=== PATIENT | male | born 1990 | race Caucasian/White ===

== ENCOUNTER 2016-12-08 13:17 | Inpatient (IN) | payer MEDICAID, OTHER ==
[~2016-12-08] VITALS: Ht 175.3 cm; Wt 64.0 kg
[2016-12-08 13:17] VITALS: BP 121/84; PULSE 83; RESP 14; O2SAT 100
[~2016-12-08 13:17] MED LIST: OLAN5TAB25 PO
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
[2016-12-08 15:49] LABS: BASOPHILS % (AUTO) 0.2 % (0-3); EOSINOPHILS % (AUTO) 0.3 % (0-5); MONOCYTES % (AUTO) 7.7 % (4-12); Mean Corpuscular Hemoglobin 28.1 pg (27.0-35.0); Mean Corpuscular Volume 81.7 fL (81-100); Platelet Count 244 bil/L (150-400)
[2016-12-08 18:32] VITALS: BP 118/72; PULSE 71; RESP 16; O2SAT 99
[2016-12-08 20:54] VITALS: BP 108/71; PULSE 65; RESP 16; O2SAT 98
--- NOTE | 2016-12-08 21:00 | NUR ---
Nurses Admission Note 26 year old involuntary male admitted from our ER due to increasing auditory hallucinations,poor sleep, delusional thought processes as well as occasionally carrying a knife with an underlying agitated edge. Patient denied feelings of self harm, denied feelings to harm others. Patient was cooperative,oriented X 3. He has been on medications in the distant past but is not receptive to them stating they never helped him but gave him a lot of side effects.He has a history of 4 previous psychiatric hospitalizations. Patient did accept Zyprexa Zydis 10mg in the ER before transfer to the unit without difficulty. He has been sober for 2 years,smokes pot on occasion and reports it helps his anxiety and his thoughts. Patient admits to voices talking and "it freaks people out when I'm talking to them."Patient will remain on q 15min. checks for safety and support.
[2016-12-08] MEDS ORDERED: Alum-Mag Hydrox-Simeth 30 mL Suspension PO PRN (21:10)
[2016-12-08] MEDS ORDERED: LORazepam 1 mg Tablet PO PRN (21:10)
[2016-12-08] MEDS ORDERED: Benzocaine-Menthol Lozenge 2/Pkg PO PRN (21:10)
[2016-12-08] MEDS ORDERED: Magnesium Hydroxide 10 mL Oral Concentration PO PRN (21:10)
--- NOTE | 2016-12-09 05:12 | NUR ---
Prenatal Teacher note 7pm to 7am Pt appeared to sleep soundly throughout the night. Pt slept 7 hours. Monitored with q 15 minutes checks for safety, location and accountability
[2016-12-09] MEDS: OLANZapine Zydis ODT 5 mg Tablet PO SCH ×3 (08:15→21:10)
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
--- NOTE | 2016-12-09 14:24 | NUR ---
Nursing Dayshift: S: "Today's better than yesterday." O: Patient has been out of his room for meals eating 100%. Otherwise has been isolative in his room. Med compliant. Approachable. Denies anxiety, depression, harmful thoughts, and hallucinations. A: Flat affect. Isolative. P: CPOC. Monitor mood and behavior.
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
--- NOTE | 2016-12-09 21:09 | NUR ---
Observations 0900 to 2130 Pt affect and mood flat, isolative, anxious, guarded and withdrawn. Pt did not attend community meeting. Pt speech and eye contact was ok. Pt refused to attend both group and unit activities. Pt was un-social with staff and select peers when approached, giving short one/two word responses. Pt attended meals in D.R. and ate 100% of his meals. Pt came out for snacks. Pt maintained behavior throughout the shift. Pt was polite, pleasant and cooperative. Pt was in his room most of the shift, sitting on bed, laying in bed and/or pacing around the room. Pt paced in the hallway for a short time in the early evening. Pt was observed every 15 minutes throughout the shift as ordered.
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
--- NOTE | 2016-12-10 05:58 | NUR ---
nursing, nights, 11-7 s/o- has appeared to sleep after 2200 during q 15 minute assessments. a- Difficulty remaining asleep this shift, and noted to be conversing with internal stimuli. p- monitor behavior/emotional state, quality, times and amount of sleep, use and effect of medication.
[2016-12-10] MEDS: OLANZapine Zydis ODT 5 mg Tablet PO SCH ×2 (08:30→20:20)
--- NOTE | 2016-12-10 14:24 | NUR ---
Observations 0900 to 1500 Pt affect and mood was same as previous days. Pt attended community meeting and set a daily goal. Pt speech and eye contact was ok. Pt refused to attend both group and unit activities. Pt was un-social with staff and select peers when approached, giving short responses. Pt attended meals in D.R. and ate 100% of his meals. Pt took a shower and attended to ADL's. Pt maintained behavior throughout the shift. Pt was polite, pleasant and cooperative. Pt was out of his room a little more today. Pt was observed every 15 minutes throughout the shift as ordered.
[2016-12-10 15:45] VITALS: BP 117/63; PULSE 63; RESP 16
--- NOTE | 2016-12-10 16:22 | PCM.PNPSY ---
Subjective Date of Service Dec 10, 2016 Subjective The patient states that he is "better than yesterday, yesterday I was having a terrible time focusing. A chaotic state and now I feel fine." The patient reported that he was not interested in taking medications while in the hospital or upon discharge. The patient states that he had his father drive him into the hospital as he was having a lot of flashbacks. He reports that he felt unsafe in the home and was having violent thoughts from childhood experiences. Upon discharge he states he would like to get a job. As an example he reported in October he worked at a [employer] and in [place] time at [email or web address]. The patient so far is only taken 1 dose of olanzapine on 12/09/2016. Sleep: "I slept most of yesterday but not much last night" 3.5 hours per staff. Appetite: Reports high appetite but also states had a 10 pound weight loss over 3 weeks due to decreased appetite Suicidal and homicidal ideation: Denies Auditory hallucinations: Reports that "sometimes it is difficult to differentiate from reality." "My attention span fleeing me." Visual hallucinations: Denies Other Psychotic Symptoms: N/A Anxiety: 0/10 Depression: 0/10 Current Medications Current Medications Ketorolac Tromethamine 30 mg ONCE ONCE IM Last administered on 12/08/16 19:50; Admin Dose 30 MG; Start 12/08/16 at 19:00; Stop 12/08/16 at 19:01; Status DC Olanzapine 10 mg BID PO Last administered on 12/09/16 08:15; Admin Dose 10 MG; Start 12/09/16 at 08:30 Olanzapine 10 mg DAILY PO Last administered on 12/08/16 20:45; Admin Dose 10 MG ; Start 12/09/16 at 08:30; Stop 12/09/16 at 08:30; Status DC Mental Status Exam Vital Signs Vital Signs Date Time Temp Pulse Resp B/P Pulse Ox O2 Delivery O2 Flow Rate FiO2 12/10/16 15:45 35.7 63 16 117/63 Appearance: Neat/well groomed Attitude: Pleasant, Guarded Behavior: No unusual behavior Affect: Restricted Mood: Dysthymic Thought Process/Associations: Logical/Sequential Speech Production: Normal Speech Rate: Normal Speech Articulation: Normal Thought Content: Suspicious Danger to Self/Suicidal Ideati: None Danger to Others: None Delusions: Paranoid (Endorses) Hallucinations: Auditory (Denies), Visual (Denies) Consciousness: Alert Orientation: Person, Place, Date, Situation Memory: Grossly Intact Estimate Intellectual Function: Average Attention/Concentration & Cogn: Impaired Insight: None Judgement: Poor Result Diagram: 12/08/16 1535 12/08/16 1535 Mental Health Plan The patient is a 26-year-old male currently living with his mother and father. He has a history of multiple inpatient admissions for schizophrenia at both [facility] and at [facility]. He tends to be medication noncompliant. He states he has been not taking any psychiatric medications for the past two years and over the past three months has had increased psychosis ( responding to internal stimuli, paranoid, increasing agitation). For the past three weeks, he has had poor sleep, and now he is having auditory hallucinations , homicidal ideation (nonspecific target) and buddhism preoccupation. On admission, he was agitated and it was difficult to get an alliance. In the past he has responded to Zyprexa, although he is only taken one dose since admission here. He was detained on a 72-hour involuntary treatment. The severity of his symptoms appear to have abated for the time being. [place] I 1. Schizophrenia. 2. Posttraumatic stress disorder. 3. Depression, unspecified. 4. Marijuana use disorder [place] II Defer. [place] III None. [place] IV Moderate. [place] V Current GAF equal to 30. Medications Olanzapine 10 mg twice daily Lorazepam 1 mg every 4 hours when necessary anxiety or agitation Zolpidem 5-10 mg nightly when necessary insomnia Treatments 1. The patient is admitted to the inpatient unit and will be provided a safe and secure environment. 2. The patient is denying current active suicidality and is not in need of a one-to-one at this time. 3. The patient is encouraged to participate with group and milieu activities. 4. The patient will be seen by the treatment team on a daily basis to assess symptoms, side effects and response to treatment. 5. The patient is encouraged to take medications and depending on his response on the units may require a compelled medication order. Family have expressed concern about the patient returning home in his current condition. 6. Anticipated length of stay is 7-10 days. Nolan Crocker MD Dec 10, 2016 16:22
--- NOTE | 2016-12-10 17:37 | NUR ---
nursing note 7am-7pm S)"thank you ... I don't know who to thank for the food" O) pt remains polite, states mood is "mostly optimistic" denies any depression or anxiety, isolates in room came out for meals, non-compliant with medications "I was told I am not forced to take them...so I will not take them at this time" no complaints or questions, well groomed and dressed in scrubs A)cooperative, polite, refused medication P)encourage participation in treatment and to take medications as ordered
--- NOTE | 2016-12-10 17:57 | NUR ---
Field Laborer./ c.m. S.:"I'm better than yesterday. Today I feel fine. I told them I'm not interested in medications. I calmed down a lot here." O.: met with pt. and MD together. Pt. didn't sleep well last night because he "slept almost all day yesterday". MD asked pt. to stay awake today during the day but pt. was sleeping on and off again during the day. Pt. didn't want to take meds. He said that "meditation and time out" were the best for him. He denied SI/HI, denied AH/VH, denied depression or anxiety, denied paranoid/delusional thoughts. He said that he would be able to go back home after discharge. He didn't see a reason for staying here longer. He signed RAMYA for his father Kody Infante and data analyst report writer talked to pt.'s father. Kody Infante refused to take pt. back home unless he was taking meds. Father wanted to see pt. on 14 [address]. He didn't explain much about it except pt. "needs to take meds." He didn't have any options for pt.'s housing if he wasn't taking meds. "Principal Cloud Architect has to put him (pt.) on 14 MR[address] and tell him to take medications! After that he can come home!" Pt. was in and out from his room mostly for meals. He didn't socialize with peers. A.: pt. is isolative, easily agitated, has poor insight about his mental health condition. He has a flat affect and intense stare. P.: monitor behavior, encourage pt. to take meds; follow care plan.
--- NOTE | 2016-12-10 20:22 | NUR ---
Refused meds S: Pt understands that he has one scheduled med this evening. I: Pt states, "I'm refusing them at this time and they (the doctor) know this." E: Pt does not appear psychotic. He is lying quietly in his bed. Denies pain.
--- NOTE | 2016-12-11 00:31 | NUR ---
Pain P: Pt is awake. C/O a headache. I: Refuses Tylenol E: Will cont to monitor
--- NOTE | 2016-12-11 02:35 | NUR ---
Observations 1900 to 0700 Pt has been in his room for most of the night. Pt came out for awhile to talk to his visitor. Pt went back to his room soon after. pt is having a hard time staying asleep during the night. Pt first appeared asleep at 22:15 and was observed every 15 minutes through the night as directed.
[2016-12-11] MEDS: OLANZapine Zydis ODT 5 mg Tablet PO SCH (08:30)
[2016-12-11 14:26] VITALS: BP 138/79; PULSE 59; RESP 17
--- NOTE | 2016-12-11 15:36 | NUR ---
Mechanical Design Engineer Products./c.m. S.:"I'm tired. I couldn't sleep at all. I'm getting rest that I need right now... I'm not interested in medications." O.: met with pt. and MD together in pt.'s room. He was in bed resting. He spent a lot of time in his room during the day. He complained about checks at night. He denied SI/HI denied AH/VH, denied paranoid/delusional thoughts, denied anxiety. He said that he "was depressed today. I just miss my son and a woman whom I love." He refused to take meds - "I'm not interested in meds." Ichthyologist talked with pt.'s father yesterday about pt.'s progress and housing options at time of discharge. Pt.'s father refused to take pt. back home without medications. He said "he can't come home if he is not taking medications." Ichthyologist told pt. about his father's requirement. Pt. said that he would find different housing - "I have a few more options." A.: pt. is isolative, quiet, has poor insight, easily frustrated. P.: monitor behavior, encourage pt. to take meds, possible court tomorrow; follow care plan.
--- NOTE | 2016-12-11 21:55 | PCM.PNPSY ---
Subjective Date of Service Dec 11, 2016 Subjective The patient reports that he remembers being quite agitated at home and was trying to express his frustrations and anger which resulted in his knife threats. He iterated that he did not plan or want to take medications on discharge. When explained to him that his family was concerned about his behavior and did not feel comfortable having him return home without medications (which have typically stabilized him.) The patient simply reported , "I will have to find somewhere else to live then." He was unaware of where would or could stay. He continues to refuse medications. We discussed decreasing the dose of olanzapine, but the patient declined. The patient has a family visit planned for today. Sleep: 3.75 hours Appetite: "fine - eating all meals." Suicidal and homicidal ideation: denies Auditory hallucinations/Visual hallucinations: denies Other Psychotic Symptoms: isolation, limited insight Anxiety: denies Depression: "earlier today, missing my son and the woman I love." Reports his last communication with his former girlfriend was August 22 via texting. He appeared to have difficulty understanding her statement that she would like to be friends but nothing more than that. Mental Status Exam Vital Signs Vital Signs Date Time Temp Pulse Resp B/P Pulse Ox O2 Delivery O2 Flow Rate FiO2 12/11/16 14:26 35.8 59 17 138/79 Appearance: Neat/well groomed Attitude: Pleasant, Guarded Behavior: No unusual behavior Affect: Restricted Mood: Dysthymic Thought Process/Associations: Logical/Sequential Speech Production: Normal Speech Rate: Normal Speech Articulation: Normal Thought Content: Suspicious Danger to Self/Suicidal Ideati: None Danger to Others: None Delusions: Paranoid (Moderate, isolates to room, avoids staff/peers.) Hallucinations: Auditory (Denies), Visual (Denies) Consciousness: Alert Orientation: Person, Place, Date, Situation Memory: Grossly Intact Estimate Intellectual Function: Average Attention/Concentration & Cogn: Impaired Insight: None Judgement: Poor Result Diagram: 12/08/16 1535 12/08/16 1535 Mental Health Plan The patient is a 26-year-old male currently living with his mother and father. He has a history of multiple inpatient admissions for schizophrenia at both [facility] and at [facility]. He tends to be medication noncompliant. He states he has been not taking any psychiatric medications for the past two years and over the past three months has had increased psychosis ( responding to internal stimuli, paranoid, increasing agitation). For the past three weeks, he has had poor sleep, and now he is having auditory hallucinations , homicidal ideation (nonspecific target) and christianity preoccupation. On admission, he was agitated and difficult to engage. In the past he has responded to Zyprexa, although he has only taken one dose since admission here. He appears improved, but remains suspicious, with cognitive impairment and poor insight and judgment. He was detained on a 72-hour involuntary treatment. The severity of his symptoms appear to have abated for the time being. Nevertheless, he is still exhibiting negative symptoms and may accept a reduce dose of olanzapine after family visit today. Magnolia Magnolia I 1. Schizophrenia. 2. Posttraumatic stress disorder. 3. Depression, unspecified. 4. Marijuana use disorder Magnolia II Defer. Magnolia III None. Magnolia IV Moderate. Magnolia V Current GAF equal to 30. Medications Olanzapine 10 mg twice daily Lorazepam 1 mg every 4 hours when necessary anxiety or agitation Zolpidem 5-10 mg nightly when necessary insomnia Treatments 1. The patient is admitted to the inpatient unit and will be provided a safe and secure environment. 2. The patient is denying current active suicidality and is not in need of a one-to-one at this time. 3. The patient is encouraged to participate with group and milieu activities. 4. The patient will be seen by the treatment team on a daily basis to assess symptoms, side effects and response to treatment. 5. The patient is encouraged to take medications and depending on his response on the units may require a compelled medication order. Family have expressed concern about the patient returning home in his current condition. Olanzapine will be reduced to 5mg nightly to potentially aid in adherence. 6. Anticipated length of stay is 7-10 days. Nolan Crocker MD Dec 11, 2016 21:54
--- NOTE | 2016-12-11 23:53 | NUR ---
Nurses Note Evening Patient has been on the unit,played cards with male peers,was visited by his father which was tense at times. Patient has maintained control but remains guarded and superficial with staff.Will maintain q 15min. checks for safety and support.Patient has court in the am. Addendum: 12/11/16 at 2867 by JOSIAS NGO RN Amended: Links added.
--- NOTE | 2016-12-12 01:26 | NUR ---
Observations 1900 to 0700 Pt's Mother visited again last night. Pt played cards for awhile Pt went back to his room soon after he was done. pt is sleeping better than the previous night. Pt first appeared asleep at 21:30 and was observed every 15 minutes through the night as directed.
--- NOTE | 2016-12-12 05:51 | NUR ---
Sleep 11p-7a Adequate sleep through the night with no noted distress or awakening per protocol checks. Total sleep 7.5+ hours.
[2016-12-12 10:36] VITALS: BP 131/81; PULSE 84; RESP 16
--- NOTE | 2016-12-12 17:07 | PCM.PNPSY ---
Subjective Date of Service Dec 12, 2016 Subjective The patient continues to endorse a belief in Satanic cults in the area but states that he no longer feels threatened by them. He reports that although he was holding onto a knife and it could have been interpreted as threatening, he was not intending to threaten anyone. He reported that at that time he was feeling threatened (and in the [facility] notes it states that the patient had threatened to kill others to defend himself) but denies similar. We discussed the patient's family and there are reports of concern about his recent behavior and request that he be on medication and the patient stated that his family no longer is requesting. In Court he denied ever having heard that he had schizophrenia and that "this is the first time I have ever heard of it." Of note he was diagnosed with schizophrenia during his last stay in 2014. He reports a belief that his symptoms are due to post manic stress disorder although the traumatizing event is unclear. He reports that he plans to treat his schizophrenia with roby chi and martial arts. He has consistently declined medications outside of the original dose of olanzapine. Sleep: 8.5+ hours Appetite: Good Suicidal and homicidal ideation: Denies Auditory hallucinations/Visual hallucinations: Denies Other Psychotic Symptoms: Paranoid delusions as above Anxiety: Moderate Depression: Denies Mental Status Exam Vital Signs Vital Signs Date Time Temp Pulse Resp B/P Pulse Ox O2 Delivery O2 Flow Rate FiO2 12/12/16 10:36 36.7 84 16 131/81 Appearance: Neat/well groomed Attitude: Pleasant, Guarded Behavior: No unusual behavior Affect: Restricted Mood: Dysthymic Thought Process/Associations: Logical/Sequential Speech Production: Normal Speech Rate: Normal Speech Articulation: Normal Thought Content: Suspicious Danger to Self/Suicidal Ideati: None Danger to Others: None Delusions: Paranoid (Moderate, isolates to room, avoids staff/peers. Delusions as above.) Hallucinations: Auditory (Denies), Visual (Denies) Consciousness: Alert Orientation: Person, Place, Date, Situation Memory: Grossly Intact Estimate Intellectual Function: Average Attention/Concentration & Cogn: Impaired Insight: None Judgement: Poor Result Diagram: 12/08/16 1535 12/08/16 1535 Mental Health Plan The patient is a 26-year-old male currently living with his mother and father. He has a history of multiple inpatient admissions for schizophrenia at both [facility] and at [facility]. He tends to be medication noncompliant. He states he has been not taking any psychiatric medications for the past two years and over the past three months has had increased psychosis ( responding to internal stimuli, paranoid, increasing agitation). For the past three weeks, he has had poor sleep, and now he is having auditory hallucinations , homicidal ideation (nonspecific target) and confucianism preoccupation. On admission, he was agitated and difficult to engage. In the past he has responded to Zyprexa, although he has only taken one dose since admission here. He appears improved, but remains suspicious, with cognitive impairment and poor insight and judgment. He was detained on a 72-hour involuntary treatment. The severity of his symptoms appear to have abated for the time being. Nevertheless, he is still describing a number of delusions, demonstrating poor insight into his mental illness and need for treatment, and exhibiting negative symptoms. He, so far, has declined medications. He has been detained on a 14 day order and should he refuse medications a second opinion will need to be obtained. Raleigh Raleigh I 1. Schizophrenia, chronic paranoid type. 2. Posttraumatic stress disorder. 3. Depression, unspecified. 4. Marijuana use disorder Raleigh II Defer. Raleigh III None. [place] IV Moderate. Raleigh V Current GAF equal to 30. Medications Olanzapine 5mg nightly Lorazepam 1 mg every 4 hours when necessary anxiety or agitation Zolpidem 5-10 mg nightly when necessary insomnia Treatments 1. The patient is admitted to the inpatient unit and will be provided a safe and secure environment. 2. The patient is denying current active suicidality and is not in need of a one-to-one at this time. 3. The patient is encouraged to participate with group and milieu activities. 4. The patient will be seen by the treatment team on a daily basis to assess symptoms, side effects and response to treatment. 5. The patient is encouraged to take medications and depending on his response on the units may require a compelled medication order. Family have expressed concern about the patient returning home in his current condition. Olanzapine will be reduced to 5mg nightly to potentially aid in adherence. 6. Will attempt to schedule family meeting in the near future. 6. Anticipated length of stay is 7-10 days. Nolan Crocker MD Dec 12, 2016 17:07
--- NOTE | 2016-12-12 18:55 | NUR ---
Quality Nurse/Counselor: S/O: Patient slept 8.5 hours last night as per staff. He denies S/I and H/I. He denies auditory and visual hallucinations. Depression is 0/10 and anxiety is "moderate"/10. Patient's family has a scheduled family meeting with the psychiatrist at 1:00pm tomorrow. A: Patient is cooperative, pleasant, guarded, restricted affect, dysthymic, no insight, poor judgment. P: Follow care plan, coordinate out-patient providers.
--- NOTE | 2016-12-13 03:40 | NUR ---
Nursing Note [id number] Pt isolating to room. Did not attend suman group or suman snack time. Pt appeared to be in a manic state rapidly scribbling on paper with flat affect. Pt avoided eye contact and has no apparent insight to his condition . When asked about depression, anxiety, and SI,OR pt was unable or unwilling to assess only stating multiple times"I'm great". When asked if he needed anything pt c/t state "I would not want to trouble you with conversation". P Pt c/t refuse all ordered medication and no PRN's requested. Q15 min safety checks done per protocol, no distress noted WCTM sleep, safety, behavior
[2016-12-13 09:15] VITALS: BP 132/80; PULSE 82; RESP 17
--- NOTE | 2016-12-13 17:52 | NUR ---
Observations [id number] Pt was asleep upon start of shift. Pt spent more time in the common areas today, playing the guitar in the piano room and socializing more with peers. Pt also took a shower but did not want a new change of clothing. He attended all meals, eating 100%. He did not attend groups. Pt was observed talking to himself in dining area. He appeared to be writing and talking at the same time. Pt also appears to be observing other patients and analyzing their behavior. Pt was friendly upon interaction and was observed every 15 minutes of shift as directed.
--- NOTE | 2016-12-13 17:54 | NUR ---
Nursing Dayshift: S: "I want to maintain a steady constant, serenity." O: Patient's goal for today. Has been in his room much of the shift through mid afternoon. Noted to be coloring in the dining room later in the afternoon. Good appetite at meals and snacks. Noted to be odoriferous. Encouraged to take a shower and complied. Put on the same clothing and continues to be odoriferous. Declined to change into a clean pair of scrubs. A: Odoriferous. Flat affect. P: CPOC. Monitor mood and behavior. Encourage change of clothing with a possible extra shower.
--- NOTE | 2016-12-13 23:26 | PCM.PNPSY ---
Subjective Date of Service Dec 13, 2016 Subjective An hour long meeting with the patient and his parents was had today. The patient's parents encouraged the patient to take antipsychotic medication. The patient again referred to his belief in cult behavior by the buddhist he attended as well as his belief that he may have been given communal wine and Eucharist which were deliberately tainted so that he would hallucinate. The patient's reluctance to medication appears related to his mother's reluctance to take medication although she stated to him today that she believes that he needs to take medication. Sleep: 8.5 hours Appetite: good Suicidal and homicidal ideation: denies Auditory hallucinations: denies Visual hallucinations: denies Other Psychotic Symptoms: paranoid delusions as above. Anxiety: denies Depression: denies Mental Status Exam Appearance: Neat/well groomed Attitude: Pleasant, Guarded Behavior: No unusual behavior Affect: Restricted Mood: Irritable (mildly), Dysthymic Thought Process/Associations: Logical/Sequential (generally), Circumstantial Speech Production: Normal Speech Rate: Normal Speech Articulation: Normal Thought Content: Suspicious Danger to Self/Suicidal Ideati: None Danger to Others: None Delusions: Paranoid (Moderate, isolates to room, avoids staff/peers. Delusions as above.) Hallucinations: Auditory (Denies), Visual (Denies) Consciousness: Alert Orientation: Person, Place, Date, Situation Memory: Grossly Intact Estimate Intellectual Function: Average Attention/Concentration & Cogn: Impaired Insight: None Judgement: Poor Result Diagram: 12/08/16 1535 12/08/16 1535 Mental Health Plan The patient is a 26-year-old male currently living with his mother and father. He has a history of multiple inpatient admissions for schizophrenia at both [facility] and at [facility]. He tends to be medication noncompliant. He states he has been not taking any psychiatric medications for the past two years and over the past three months has had increased psychosis ( responding to internal stimuli, paranoid, increasing agitation). For the past three weeks, he has had poor sleep, and now he is having auditory hallucinations , homicidal ideation (nonspecific target) and alevism preoccupation. On admission, he was agitated and difficult to engage. In the past he has responded to Zyprexa, although he has only taken one dose since admission here. He appears improved, but remains suspicious, with cognitive impairment and poor insight and judgment. He was detained on a 72-hour involuntary treatment. The severity of his symptoms appear to have abated for the time being. Nevertheless, he is still describing a number of delusions, demonstrating poor insight into his mental illness and need for treatment, and exhibiting negative symptoms. He, so far, has declined medications. He has expressed concern about metabolic syndrome and weight gain and so was given informed consent and product information regarding aripiprazole. He has been detained on a 14 day order and should he refuse medications a second opinion will need to be obtained. Woodbridge Woodbridge I 1. Schizophrenia, chronic paranoid type. 2. Posttraumatic stress disorder. 3. Depression, unspecified. 4. Marijuana use disorder Woodbridge II Defer. Woodbridge III None. Wood[place] IV Moderate. [place] V Current GAF equal to 30. Medications Olanzapine 5mg nightly Lorazepam 1 mg every 4 hours when necessary anxiety or agitation Zolpidem 5-10 mg nightly when necessary insomnia Treatments 1. The patient is admitted to the inpatient unit and will be provided a safe and secure environment. 2. The patient is denying current active suicidality and is not in need of a one-to-one at this time. 3. The patient is encouraged to participate with group and milieu activities. 4. The patient will be seen by the treatment team on a daily basis to assess symptoms, side effects and response to treatment. 5. The patient is encouraged to take medications and depending on his response on the units may require a compelled medication order. Family have expressed concern about the patient returning home in his current condition. Olanzapine will be discontinued and aripiprazole 5mg daily will be initiated. 6. Will attempt to schedule family meeting in the near future. 7. Anticipated length of stay is 7-10 days. Nolan Crocker MD Dec 13, 2016 19:24
--- NOTE | 2016-12-14 05:44 | NUR ---
Nursing Noc Zero change from previous assessment earlier today. Pt noted to be in common area and initiated interaction with check writer salesperson by saying Hello and introducing himself. Pt however did not want to continue talking and returned to coloring and snack immediately. Continuing to monitor sleep time and behavior.
[2016-12-14 10:21] VITALS: BP 130/67; PULSE 93; RESP 16
--- NOTE | 2016-12-14 15:03 | NUR ---
Pt. agreed to take AM scheduled Abilify at [address] Crocker was informed, and ordered the medication be given. Pt. took at 1505.
--- NOTE | 2016-12-14 15:07 | PCM.PNPSY ---
Subjective Date of Service Dec 14, 2016 Subjective Patient initially refused his morning aripiprazole. Second opinion obtained. Attempted to discuss patient's current symptoms and treatment. The patient reported that he was trying to investigate the use of guitar Spottly to help with his mental illness. He also reported a concern that people were using taped messages to make him appear to be responding to auditory hallucinations he indicated uncertainty as to whether he actually experienced this. The patient became increasingly agitated stating that we were using him as a guinea pig. The patient was given a full monograph and Micromedex and RENARD information and eventually agreed to take medication. The patient although Rachel is refusing to change clothing and has a strong body odor. Sleep: 8+ hours. Appetite: Good Suicidal and homicidal ideation: Denies Auditory hallucinations: Possibly endorsing Visual hallucinations: Denies Other Psychotic Symptoms: Thought disorganization Anxiety: Denies Depression: Denies Mental Status Exam Vital Signs Vital Signs Date Time Temp Pulse Resp B/P Pulse Ox O2 Delivery O2 Flow Rate FiO2 12/14/16 10:21 36.8 93 16 130/67 Appearance: Neat/well groomed Attitude: Pleasant, Guarded Behavior: No unusual behavior Affect: Restricted Mood: Irritable (mildly), Dysthymic Thought Process/Associations: Logical/Sequential (generally), Circumstantial Speech Production: Normal Speech Rate: Normal Speech Articulation: Normal Thought Content: Suspicious Danger to Self/Suicidal Ideati: None Danger to Others: None Delusions: Paranoid (Moderate, isolates to room, avoids staff/peers. Delusions as above.) Hallucinations: Auditory (Endorses), Visual (Denies) Consciousness: Alert Orientation: Person, Place, Date, Situation Memory: Grossly Intact Estimate Intellectual Function: Average Attention/Concentration & Cogn: Impaired Insight: None Judgement: Poor Result Diagram: 12/08/16 1535 12/08/16 1535 Mental Health Plan The patient is a 26-year-old male currently living with his mother and father. He has a history of multiple inpatient admissions for schizophrenia at both [facility] and at . He tends to be medication noncompliant. He states he has been not taking any psychiatric medications for the past two years and over the past three months has had increased psychosis ( responding to internal stimuli, paranoid, increasing agitation). For the past three weeks, he has had poor sleep, and now he is having auditory hallucinations , homicidal ideation (nonspecific target) and rastafarian preoccupation. On admission, he was agitated and difficult to engage. In the past he has responded to Zyprexa, although he has only taken one dose since admission here. He appears improved, but remains suspicious, with cognitive impairment and poor insight and judgment. He was detained on a 72-hour involuntary treatment. The severity of his symptoms appear to have abated for the time being. Nevertheless, he is still describing a number of delusions, demonstrating poor insight into his mental illness and need for treatment, and exhibiting negative symptoms. He, so far, has declined medications. He has expressed concern about metabolic syndrome and weight gain and so was given informed consent and product information regarding aripiprazole. He has been detained on a 14 day order and should he refuse medications a second opinion has been obtained. [place] Clarkston I 1. Schizophrenia, chronic paranoid type. 2. Posttraumatic stress disorder. 3. Depression, unspecified. 4. Marijuana use disorder Clark[place] II Defer. Clarkston III None. Clarkston IV Moderate. Clarkston V Current GAF equal to 30. Medications Aripiprazole 5 mg daily Lorazepam 1 mg every 4 hours when necessary anxiety or agitation Zolpidem 5-10 mg nightly when necessary insomnia Treatments 1. The patient is admitted to the inpatient unit and will be provided a safe and secure environment. 2. The patient is denying current active suicidality and is not in need of a one-to-one at this time. 3. The patient is encouraged to participate with group and milieu activities. 4. The patient will be seen by the treatment team on a daily basis to assess symptoms, side effects and response to treatment. 5. The patient is encouraged to take medications and depending on his response on the units may require a compelled medication order. Family have expressed concern about the patient returning home in his current condition. 6. Second opinion has been obtained and back up will be olanzapine. 7. Will attempt to schedule family meeting in the near future. 8. Anticipated length of stay is 7-10 days. Nolan Crocker MD Dec 14, 2016 15:07
--- NOTE | 2016-12-14 17:15 | NUR ---
Nursing Dayshift: S: "Okay, just give me the pill!" O: Patient has been refusing medication since admission on the 4th. Second opinion obtained for involuntary medication and Zyprexa 10 mg IM ordered for refusal of Abilify PO order. This was all explained to the patient and he vehemently refused the PO and was very argumentative and belligerent toward staff. Encouraged patient to think about it overnight and if he did refuse the Abilify in the morning then he would get the IM dose instead. About a half hour later patient came to the nurses station and made the above comment. Has been out of his room much of the shift. Eating well at meals. Playing the [employer] and singing in the piano room this afternoon. Much calmer at present. A: Social. Irritable at times. Calm otherwise. P: CPOC. Monitor mood and behavior.
--- NOTE | 2016-12-14 17:21 | NUR ---
Observations 0900 to 2130 Pt affect and mood was labile, anxious and isolative at times. Pt got a little upset when this press writer was doing room and safety checks. Pt speech and eye contact was ok. Pt attended community meeting and set a daily goal. Pt was minimally social with staff and select peers when approached. Pt attended meals in D.R. and ate 100% of his meals. Pt maintained behavior throughout the shift. Pt was polite, pleasant and cooperative. Pt was in her room during free time, going through paperwork. Pt watched a little bit of TV. Pt went in piano room. Pt played guitar, sang and appeared to enjoy this. Pt was observed every 15 minutes throughout the shift as ordered.
--- NOTE | 2016-12-15 06:12 | NUR ---
Nursing Noc Pt noted to visit with family and perform music this shift. Reported that patient appears more confrontational this shift with decreased patients. Patient was noted to come to evening snack and wrap up group but turned around and went back to room when promised popcorn was not ready. No apparent distress. monitor behavior/emotional state, quality, times and amount of sleep, use and effect of medication.
[2016-12-15 08:25] VITALS: BP 116/67; PULSE 117; RESP 18
--- NOTE | 2016-12-15 17:05 | NUR ---
OBSERVATIONS 0900 TO 2130 Pt was relatively social with staff and peers throughout the shift playing guitar and piano and singing with peers. Even when in common areas pt appeared deeply pensive, distant. Pt did not participate in group activities, however, spent some time with peers on the patio. Pt showered and changed into fresh scrubs. Pt ate 100% of meals.
--- NOTE | 2016-12-15 18:14 | PCM.PNPSY ---
Subjective Date of Service Dec 15, 2016 Subjective The patient took aripiprazole yesterday and this morning and reports that he is experiencing, "kind of a better mood. Abnormally perky." He reports having a good visit with his mother. He is not irritable with the treatment team and does not appear concerned with any side effects and is willing to continue with this medication. He also reported that he was "not so stressed that I did not want to eat." He reported some difficulty sleeping as it was difficult to initiate sleep but otherwise was rested. Sleep: 6+ hours. Appetite: Fine Suicidal and homicidal ideation: Denies Auditory hallucinations: Denies Visual hallucinations: Denies Other Psychotic Symptoms: More organized Anxiety: Denies Depression: Denies Current Medications Current Medications Aripiprazole 5 mg DAILY PO Last administered on 12/15/16t 08:19; Admin Dose 5 MG ; Start 12/14/16 at 08:30 Mental Status Exam Appearance: Neat/well groomed Attitude: Pleasant, Cooperative Behavior: No unusual behavior Affect: Restricted Mood: Euthymic Thought Process/Associations: Logical/Sequential, Goal Directed Speech Production: Normal Speech Rate: Normal Speech Articulation: Normal Thought Content: Suspicious Danger to Self/Suicidal Ideati: None Danger to Others: None Delusions: Paranoid (Endorses) Hallucinations: Auditory (Denies), Visual (Denies) Consciousness: Alert Orientation: Person, Place, Date, Situation Memory: Grossly Intact Estimate Intellectual Function: Average Attention/Concentration & Cogn: Impaired Insight: Limited Judgement: Limited Mental Health Plan The patient is a 26-year-old male currently living with his mother and father. He has a history of multiple inpatient admissions for schizophrenia at both [facility] and at [facility]. He tends to be medication noncompliant. He states he has been not taking any psychiatric medications for the past two years and over the past three months has had increased psychosis ( responding to internal stimuli, paranoid, increasing agitation). For the past three weeks, he has had poor sleep, and now he is having auditory hallucinations , homicidal ideation (nonspecific target) and methodist preoccupation. On admission, he was agitated and difficult to engage. In the past he has responded to Zyprexa, although he has only taken one dose since admission here. He appears improved, but remains suspicious, with cognitive impairment and poor insight and judgment. He was detained on a 72-hour involuntary treatment. The severity of his symptoms appear to have abated for the time being. Nevertheless, he is still describing a number of delusions, demonstrating poor insight into his mental illness and need for treatment, and exhibiting negative symptoms. Once receiving second opinion, he did agree to take aripiprazole and is reporting so far a positive experience with this medication. He is attending better to his hygiene and reports overall that his mood is improved. He inquires as to how early he can be discharged. We discussed that this would need to be assessed on an ongoing basis once stable on medication. Galt Galt I 1. Schizophrenia, chronic paranoid type. 2. Posttraumatic stress disorder. 3. Depression, unspecified. 4. Marijuana use disorder Galt II Defer. Galt III None. Galt IV Moderate. Galt V Current GAF equal to 30. Medications Aripiprazole 5 mg daily Lorazepam 1 mg every 4 hours when necessary anxiety or agitation Zolpidem 5-10 mg nightly when necessary insomnia Treatments 1. The patient is admitted to the inpatient unit and will be provided a safe and secure environment. 2. The patient is denying current active suicidality and is not in need of a one-to-one at this time. 3. The patient is encouraged to participate with group and milieu activities. 4. The patient will be seen by the treatment team on a daily basis to assess symptoms, side effects and response to treatment. 5. Aripiprazole 5 mg daily. 6. Second opinion has been obtained and back up will be olanzapine. 7. May need follow-up family meeting prior to discharge. 8. Anticipated length of stay is 10-14 days. Nolan Crocker MD Dec 15, 2016 18:14
--- NOTE | 2016-12-15 18:18 | NUR ---
Day Orientation: x3; when asked about situation pt stated, "The doctor says I have schizophrenia and that I am gravely disabled . . . We have an agreement that if I take my meds I can go home. That is, if he is a man of his word." Mood: "I'm great. I'm happy here playing piano." Denies anxiety and depression Affect: Restricted, irritable Behavior: Pt singing; playing piano and guitar much of day; coloring in AM. Thought Process/Content: Linear, logical; denies AH, VH. "The only thing I hear is the music." Denies HI, SI.
--- NOTE | 2016-12-16 05:52 | NUR ---
Nursing Noc Pt presents slightly paranoid and isolative towards promotion writer. Noted to be in common area for snack and engaged in conversation with fellow patient only. Continuing monitor behavior/emotional state, quality, times and amount of sleep, use and effect of medication.
[2016-12-16 10:47] VITALS: BP 124/80; PULSE 111; RESP 18
--- NOTE | 2016-12-16 17:04 | NUR ---
Roll Tester./ c.m. S.:"I'm doing pretty good. On a scale from 1 to 10 it is 9... There are different emotions fluctuating. I'm trying to find comfort. I'm making a free choice for myself." O.: met with pt. and MD together in a private room. Pt. denied SI/HI, denied AH/VH, denied depression or anxiety. He slept "good all night". He said that "this place is a [place] area" and he went into a long explanation why he believed in that. He also said that his "sexual appetite is higher than before" he was taking Abilify. He believed that it was a side effect of medications. He was talking a lot about multiple topics including a universe. He was in and out of his room but he was keeping mostly to himself. A.: pt. is cooperative, pleasant, isolative, confused at times, grandiose and scattered. P.: monitor behavior, monitor meds intake, work on outpatient services; follow care plan.
--- NOTE | 2016-12-16 17:06 | PCM.PNPSY ---
Subjective Date of Service Dec 16, 2016 Subjective The patient reports his mood is 9/10. He reports that he is not tried during the day and easily went to bed at 8:30 or 9:00 and fell asleep without difficulty. He states that he is experiencing a period of "contentment and reflection and trying to find comfort." The patient still struggled with determining how he would differentiate between hallucinations and reality but was definitely improved. The patient requests that he could be released as early as possible as he would like to go back to work and to help his mother out at home. He reports the only side effect from the medication is not increase in his libido which had been significantly depressed for a significant period of time. He denies any priapism or other abnormal physical sensations. There are no other side effects reported. Sleep: 7.25 + hours. Appetite: "Normal" Suicidal and homicidal ideation: Denies Auditory hallucinations: Denies Visual hallucinations: Denies Other Psychotic Symptoms: Decreased circumstantiality. Anxiety: Denies Depression: Denies Mental Status Exam Vital Signs Vital Signs Date Time Temp Pulse Resp B/P Pulse Ox O2 Delivery O2 Flow Rate FiO2 12/16/16 10:47 36.6 111 18 124/80 Appearance: Neat/well groomed Attitude: Pleasant, Cooperative Behavior: No unusual behavior Affect: Restricted Mood: Euthymic Thought Process/Associations: Logical/Sequential, Goal Directed Speech Production: Normal Speech Rate: Normal Speech Articulation: Normal Thought Content: Suspicious Danger to Self/Suicidal Ideati: None Danger to Others: None Delusions: Paranoid (Endorses) Hallucinations: Auditory (Denies), Visual (Denies) Consciousness: Alert Orientation: Person, Place, Date, Situation Memory: Grossly Intact Estimate Intellectual Function: Average (to ), Above Average Basis for IQ estimate: Awareness current events, Word use/vocabulary, Educational history, Employment history Attention/Concentration & Cogn: Impaired (somewhat) Insight: Limited Judgement: Limited Mental Health Plan The patient is a 26-year-old male currently living with his mother and father. He has a history of multiple inpatient admissions for schizophrenia at both [facility] and at [facility]. He tends to be medication noncompliant. He states he has been not taking any psychiatric medications for the past two years and over the past three months has had increased psychosis ( responding to internal stimuli, paranoid, increasing agitation). For the past three weeks, he has had poor sleep, and now he is having auditory hallucinations , homicidal ideation (nonspecific target) and tenriism preoccupation. On admission, he was agitated and difficult to engage. In the past he has responded to Zyprexa, although he has only taken one dose since admission here. He appears improved, but remains suspicious, with cognitive impairment and poor insight and judgment. He was detained on a 72-hour involuntary treatment and subsequently detained on a 14 day order. He was provided detailed information regarding the potential risks and benefits to aripiprazole but required a medication override due to medication refusal without clear reason for the refusal. Once receiving second opinion, he did agree to take aripiprazole and is reporting so far a positive experience with this medication. He is attending better to his hygiene and reports overall that his mood is improved. He inquires as to how early he can be discharged. We discussed that this would need to be assessed on an ongoing basis once stable on medication. [place] Houl[place] I 1. Schizophrenia, chronic paranoid type. 2. Posttraumatic stress disorder. 3. Depression, unspecified. 4. Marijuana use disorder [place] II Defer. [place] III None. [place] IV Moderate. [place] V Current GAF equal to 30. Medications Aripiprazole 5 mg daily Olanzapine 10 mg IM for each dose aripiprazole refused. Lorazepam 1 mg every 4 hours when necessary anxiety or agitation Zolpidem 5-10 mg nightly when necessary insomnia Treatments 1. The patient is admitted to the inpatient unit and will be provided a safe and secure environment. 2. The patient is denying current active suicidality and is not in need of a one-to-one at this time. 3. The patient is encouraged to participate with group and milieu activities. 4. The patient will be seen by the treatment team on a daily basis to assess symptoms, side effects and response to treatment. 5. Aripiprazole 5 mg daily. 6. Second opinion has been obtained and back up will be olanzapine. 7. May need follow-up family meeting prior to discharge. 8. Anticipated length of stay is 7-10 days. Nolan Crocker MD Dec 16, 2016 17:06
--- NOTE | 2016-12-16 17:09 | NUR ---
NURS DAY Orientation: x3 Mood: "I feel irritable but patient." Denies anxiety, depression. Affect: Somewhat restricted. Behavior: Appropriate. Spent more time interacting with others today than yesterday. Played music in piano rm in morning with fellow pt. Pt reports playing music alleviates anxiety. Thought Process/Content: Linear, logical. "I'm trying to decide whether to send my son to an accelerated program or keep in class where he knows the other students. I'm learning how to be a good parent." NURS/PRN: Discussed pt thoughts on future following hospitalization. Pt expressed frustration about living with his parents as a grown man and gratitude for having a place to stay and parents who "have been teaching me how to be a parent." Addendum: 12/16/16 at 1733 by FIDENCIO CHENEY RN Amended: Links added.
--- NOTE | 2016-12-16 18:31 | NUR ---
[facility] Day Shift Pt maintained behavioral control throughout the shift. Pt affect appears blunted, occasionally bright/euthymic when engaged with staff and peers. Pt spends most of the shift engaging in unit activities (coloring, guitar) and reading/resting/writing in his room. Pt is appropriate and pleasant with staff and peers when active on the unit. Pt did not attend community meeting, but did participate lightly in afternoon group activity. Pt attended all meals and ate approx 100% of all meals.
--- NOTE | 2016-12-17 06:09 | NUR ---
Nursing Noc Pt spent the evening out in the main milieu interacting with visitors, peers and staff. He has shown improved mood with less irritability. Took scheduled medication. Declines need for prn medication. His thoughts remain tangential and scattered. During the later evening he had excess energy that he was releasing by sprinting in the hallway and attempting to "shadow box" with a male peer. He was agreeable to stop when told to stop by staff. He has remained polite upon interaction. He slept from [id number] then from 0130 to current time. Total sleep over 6.5 hours.
--- NOTE | 2016-12-17 13:32 | NUR ---
nursing note 7am-3pm S)"thoughts are swimming around in my head like warm trickles, not racing thoughts" O) states anxiety is 3/10 " It feels like there is some tension here today" continues to be polite with requests and flat affect, blunted, ate meals dressed in scrubs, played guitar with peers, no complaints, medication compliant A) unchanged, affect flat, cooperative P) monitor medications effects and encourage participation in treatment
[2016-12-17 13:43] VITALS: BP 124/77; PULSE 73; RESP 17
--- NOTE | 2016-12-17 15:18 | PCM.PNPSY ---
Subjective Date of Service Dec 17, 2016 Subjective I spent 30 minutes both reviewing his treatment plan and providing supportive and educational psychotherapy. I spent more than 50% of the time counseling the patient. I reviewed the treatment plan with the patient and discussed options available including the potential risks, benefits and side effects. Steven reports that he has no problems and does not need any psychiatric medication. He reported being upset that he has been court ordered to take medications. He is cooperative if not introduce agreement.. The Staff reports that he has been appearing to be quite delusional with disorganized thoughts and grandiose thoughts. He slept 7.5 hours. He denies medication side effects. Patient was not top able to identify his medications nor what they were used to treat. He did not appear to understand the need for medications by the questions he asked during our discussion. Mental Status Exam Vital Signs Vital Signs Date Time Temp Pulse Resp B/P Pulse Ox O2 Delivery O2 Flow Rate FiO2 12/17/16 13:43 36.9 73 17 124/77 Appearance: Neat/well groomed Attitude: Pleasant, Cooperative Behavior: No unusual behavior Affect: Restricted Mood: Euthymic Thought Process/Associations: Logical/Sequential, Goal Directed Speech Production: Normal Speech Rate: Normal Speech Articulation: Normal Thought Content: Suspicious Danger to Self/Suicidal Ideati: None Danger to Others: None Delusions: Paranoid (Endorses) Hallucinations: Auditory (Denies) Consciousness: Alert Orientation: Person, Place, Date, Situation Memory: Grossly Intact Estimate Intellectual Function: Average (to ), Above Average Basis for IQ estimate: Awareness current events, Word use/vocabulary, Educational history, Employment history Attention/Concentration & Cogn: Impaired (somewhat) Insight: Limited Judgement: Limited Mental Health Plan The patient is a 26-year-old male currently living with his mother and father. He has a history of multiple inpatient admissions for schizophrenia at both [facility] and at [facility]. He tends to be medication noncompliant. He states he has been not taking any psychiatric medications for the past two years and over the past three months has had increased psychosis (responding to internal stimuli, paranoid, increasing agitation). For the past three weeks, he has had poor sleep, and now he is having auditory hallucinations, homicidal ideation (nonspecific target) and samaritan preoccupation. On admission, he was agitated and difficult to engage. In the past he has responded to Zyprexa, although he has only taken one dose since admission here. He appears improved, but remains suspicious, with cognitive impairment and poor insight and judgment. He was detained on a 72-hour involuntary treatment and subsequently detained on a 14 day order. He was provided detailed information regarding the potential risks and benefits to aripiprazole but required a medication override due to medication refusal without clear reason for the refusal. Once receiving second opinion, he did agree to take aripiprazole and is reporting so far a positive experience with this medication. He is attending better to his hygiene and reports overall that his mood is improved. He inquires as to how early he can be discharged. We discussed that this would need to be assessed on an ongoing basis once stable on medication. [place] Bradford I 1. Schizophrenia, chronic paranoid type. 2. Posttraumatic stress disorder. 3. Depression, unspecified. 4. Marijuana use disorder Bradford II Defer. Bradford III None. Bradford IV Moderate. Bradford V Current GAF equal to 30. Medications Aripiprazole 5 mg daily Olanzapine 10 mg IM for each dose aripiprazole refused. Lorazepam 1 mg every 4 hours when necessary anxiety or agitation Zolpidem 5-10 mg nightly when necessary insomnia Treatments 1. The patient is admitted to the inpatient unit and will be provided a safe and secure environment. 2. The patient is denying current active suicidality and is not in need of a one-to-one at this time. 3. The patient is encouraged to participate with group and milieu activities. 4. The patient will be seen by the treatment team on a daily basis to assess symptoms, side effects and response to treatment. 5. Aripiprazole 5 mg daily. 6. Second opinion has been obtained and back up will be olanzapine. 7. May need follow-up family meeting prior to discharge. 8. Anticipated length of stay is 7-10 days. Freddie Jacinto MD Dec 17, 2016 15:18
--- NOTE | 2016-12-17 18:44 | NUR ---
Observations [id number] Pt was asleep upon start of shift. He appears to be much more social then in previous days, spending more time with peers, keeping up with personal hygiene and presenting as positive. Pt did attend groups and exercised in the halls. He attended all meals, eating 100%. Pt was very friendly with peers and staff. He was observed every 15 minutes of shift as directed.
--- NOTE | 2016-12-17 21:42 | NUR ---
NURSING NOTE [id number] Mood: "fine" Affect: pleasant, superficial and aloof in conversation Behavior: social and visible for much of the shift. He spent time in the rec group, watched TV, and chatted w/peers. Attended wrap-up group. Thought processes: pt. not expressing much insight into illness, seemed surprised and defensive when asked about hallucinations (despite having endorsed them on day shift). No SI/HI.
--- NOTE | 2016-12-18 01:21 | NUR ---
Observations 1900 to 0700 Pt's Mother visited again last night. Pt did attend wrap up group. pt is sleeping better than the previous night. Pt first appeared asleep at 21:15 and was observed every 15 minutes through the night as directed.
--- NOTE | 2016-12-18 05:55 | NUR ---
Nursing note: shift commander/sleep Patient noted to be asleep at beginning of shift, then awake at 01:30. Patient remained awake in his room for several hours, polite on approach, denies complaints or need for any sleep aid. Patient noted to be asleep at 05:30 safety check. Patient with fragmented sleep.
--- NOTE | 2016-12-18 14:26 | NUR ---
Nursing Note [id number] Behavior S/O: Pt has good appetite. Pt overheard talking about the psychiatrist trying to "control him...control my brain...he's overly adamant." Pt attended community meeting this morning stating he had "lots of internal stuff." When asked about his mood he replied, "I'm feeling discomfort." Pt out in milieu with peers. Pleasant & cooperative. Took am medications as ordered. A: Pt con't to be paranoid. P: Provide supportive environment. Monitor medications & effects.
--- NOTE | 2016-12-18 14:30 | PCM.PNPSY ---
Subjective Date of Service Dec 18, 2016 Subjective I spent 20 minutes both reviewing his treatment plan and providing supportive psychotherapy. Steven repeats that he has no problems and does not need any psychiatric medication.. He is cooperative if not confronted with the reality of his half-way and if not questioned about his symptoms. The Staff reports that he has been appearing to be quite delusional with disorganized thoughts and grandiose thoughts. He slept 4 hours at night but took multiple naps during the day. He denies medication side effects. Patient was not top able to identify his medications nor what they were used to treat. He did not appear to understand the need for medications by the questions he asked during our discussion. Mental Status Exam Appearance: Neat/well groomed Attitude: Pleasant, Cooperative Behavior: No unusual behavior Affect: Restricted Mood: Euthymic Thought Process/Associations: Logical/Sequential, Goal Directed Speech Production: Normal Speech Rate: Normal Speech Articulation: Normal Thought Content: Suspicious Danger to Self/Suicidal Ideati: None Danger to Others: None Delusions: Paranoid (Endorses) Hallucinations: Auditory (Denies) Consciousness: Alert Orientation: Person, Place, Date, Situation Memory: Grossly Intact Estimate Intellectual Function: Average (to ), Above Average Basis for IQ estimate: Awareness current events, Word use/vocabulary, Educational history, Employment history Attention/Concentration & Cogn: Impaired (somewhat) Insight: Limited Judgement: Limited Mental Health Plan The patient is a 26-year-old male currently living with his mother and father. He has a history of multiple inpatient admissions for schizophrenia at both [facility] and at [facility]. He tends to be medication noncompliant. He states he has been not taking any psychiatric medications for the past two years and over the past three months has had increased psychosis (responding to internal stimuli, paranoid, increasing agitation). For three weeks prior to admission, he had poor sleep, auditory hallucinations, homicidal ideation (nonspecific target) and alevism preoccupation. On admission, he was agitated and difficult to engage. He appears improved, but remains suspicious, with cognitive impairment and poor insight and judgment. He was provided detailed information regarding the potential risks and benefits to aripiprazole but required a medication override due to medication refusal without clear reason for the refusal. Once receiving second opinion, he did agree to take aripiprazole and is reporting so far a positive experience with this medication. He is attending better to his hygiene and reports overall that his mood is improved. He inquires as to how early he can be discharged. We discussed that this would need to be assessed on an ongoing basis once stable on medication. Today he appeared much brighter but remains quite psychotic and his delusions and he appears internally preoccupied. Of significant concern is his insight judgment and impulse control. Gilliam Gilliam I 1. Schizophrenia, chronic paranoid type. 2. Posttraumatic stress disorder. 3. Depression, unspecified. 4. Marijuana use disorder Gilliam II Defer. Gilliam III None. Gilliam IV Moderate. Gilliam V Current GAF equal to 35. Medications Aripiprazole 5 mg daily Treatments 1. The patient is admitted to the inpatient unit and will be provided a safe and secure environment. 2. The patient is denying current active suicidality and is not in need of a one-to-one at this time. 3. The patient is encouraged to participate with group and milieu activities. 4. The patient will be seen by the treatment team on a daily basis to assess symptoms, side effects and response to treatment. 5. Aripiprazole 5 mg daily. 6. Second opinion has been obtained and back up will be olanzapine. 7. May need follow-up family meeting prior to discharge. 8. Anticipated length of stay is 7-10 days. Freddie Jacinto MD Dec 18, 2016 14:30
--- NOTE | 2016-12-18 15:29 | NUR ---
Court [employer] Appeals Judge./ c.m. S.:"I feel good. I talked with my county attorney and it went well." O.: met with pt. to discuss his progress. He "didn't sleep well last night" but he "took a good nap during a day." He denied SI/HI, denied AH/VH, denied paranoid/delusional thoughts, denied depression or anxiety. He started talking about "mastering martial art skills" and how it is helping him right now. He was in and out of his room mostly keeping for himself. He is hoping to go home on Kristal. or Fri. this week. A.: pt. is cooperative, pleasant, isolative and quiet. P.: monitor behavior, work on follow up, monitor for safety; follow care plan.
--- NOTE | 2016-12-18 16:37 | NUR ---
Observations [id number] Pt was awake upon start of shift. He attended morning meeting, stating that he was feeling "discomfort", and expressed concern regarding his discharge and plan and talking with the MD. Pt enjoys playing [email or web address] and has been spending time with another patient on the unit. He spent time jogging on the patio and working out on the unit. Pt was friendly with peers and staff. He attended all meals, eating 100%. Pt napped for a short period of time in the evening. He was observed every 15 minutes of shift as directed.
[2016-12-18 17:43] VITALS: BP 123/76; PULSE 79; RESP 16
--- NOTE | 2016-12-18 21:14 | NUR ---
Nursing Note [id number] Pt in room upon arrival to unit. Pt up for meals, snack and was noted socializing with peers. Pt denied anxiety, SI, HI, and hallucinations. When asked pt stated" I'm not anxious Im just walking the halls and if you here me talking to myself Im just thinking out loud". Pt affect flat , but appeared to have an improved mood AEB pt laughing and willing to talk about feelings. pt appears to have minimal insight to his current MH condition. Pt cooperative, no meds ordered on shift and no PRN's requested. Q15 min safety checks per protocol, [facility] sleep, safety, behavior
--- NOTE | 2016-12-19 05:41 | NUR ---
Nursing note: weight shifter/sleep Patient observed to be sleeping early part of shift, then awake and only intermittently resting, walking in room and hallway. Patient is soft spoken, polite. Patient denies complaints, stating "I slept earlier, I am OK"
--- NOTE | 2016-12-19 11:03 | NUR ---
DAY 7-7 S- Patient states "You don't want to drink coffee all the time, being tired is a way that your body tells you to sleep". "I had a professional oquendo as friend, he helped me with my singing, alot of it is about breathing and posture." O-Patient playing guitar and singing in music room. (quite good). Patient this am walking halls a lot, interacting with staff and other patients. Patient appears well groomed, bright affect, and upbeat about future. A-Medications given, patient was asking for am medications. P-14 day hold Saturday deadline, february go for . Have 2nd opinion for medication if needed. Addendum: 12/19/16 at 1115 by CLARA HAWKINS RN Amended: Links added.
[2016-12-19 12:01] VITALS: BP 122/76; PULSE 87; RESP 16
--- NOTE | 2016-12-19 12:52 | PCM.PNPSY ---
Subjective Date of Service Dec 19, 2016 Subjective I spent 30 minutes both reviewing his treatment plan and providing supportive psychotherapy. Steven participated well and is one to one with me. He acknowledged the need for medications today. He was able to talk about events prior to [facility]. The Staff reports that the intensity of delusional and disorganized thoughts has markedly decreased. He slept 3.5 hours at night but took multiple naps during the day. He denies medication side effects. Patient was able to identify his medications and what they were used to treat. He did appear to understand the need for medications by the questions he asked during our discussion. Mental Status Exam Vital Signs Vital Signs Date Time Temp Pulse Resp B/P Pulse Ox O2 Delivery O2 Flow Rate FiO2 12/19/16 12:01 36.4 87 16 122/76 Appearance: Neat/well groomed Attitude: Pleasant, Cooperative Behavior: No unusual behavior Affect: Restricted Mood: Euthymic Thought Process/Associations: Logical/Sequential, Goal Directed Speech Production: Normal Speech Rate: Normal Speech Articulation: Normal Thought Content: Suspicious Danger to Self/Suicidal Ideati: None Danger to Others: None Delusions: Paranoid (Endorses) Consciousness: Alert Orientation: Person, Place, Date, Situation Memory: Grossly Intact Estimate Intellectual Function: Average (to ), Above Average Basis for IQ estimate: Awareness current events, Word use/vocabulary, Educational history, Employment history Attention/Concentration & Cogn: Grossly Intact Insight: Limited Judgement: Limited Mental Health Plan The patient is a 26-year-old male currently living with his mother and father. He has a history of multiple inpatient admissions for schizophrenia at both [facility] and at [facility]. He tends to be medication noncompliant. He reported that he has not been taking any psychiatric medications for the past two years and over the past three months has had increased psychosis (responding to internal stimuli, paranoid, increasing agitation). For three weeks prior to admission, he had poor sleep, auditory hallucinations, homicidal ideation (nonspecific target) and adventist preoccupation. On admission, he was agitated and difficult to engage. He appears improved today, less suspicious, improved cognitive functioning insight and judgment. Once receiving second opinion, he did agree to take aripiprazole and is reporting a positive experience with this medication. He is attending better to his hygiene and reports overall that his mood is improved. Today he appeared much brighter with no psychotic themes and no longer internally preoccupied. [place] I 1. Schizophrenia, chronic paranoid type. 2. Posttraumatic stress disorder. 3. Depression, unspecified. 4. Marijuana use disorder [place] II Defer. [place] III None. [place] IV Moderate. [place] V Current GAF equal to 40. Medications Aripiprazole 5 mg daily Treatments 1. The patient is admitted to the inpatient unit and will be provided a safe and secure environment. 2. The patient is denying current active suicidality and is not in need of a one-to-one at this time. 3. The patient is encouraged to participate with group and milieu activities. 4. The patient will be seen by the treatment team on a daily basis to assess symptoms, side effects and response to treatment. 5. Aripiprazole 5 mg daily. 6. Second opinion has been obtained and back up will be olanzapine. 7. May need follow-up family meeting prior to discharge. 8. Anticipated length of stay is 2-3 days. Freddie Jacinto MD Dec 19, 2016 12:52
--- NOTE | 2016-12-19 18:23 | NUR ---
Regulation Supervisor/Counselor: S: "I like playing the guitar." O: Patient only slept 3.5 hours last night as per staff. He denies S/I and H/I. He denies auditory and visual hallucinations. He did not rate depression and anxiety. A: Patient is cooperative, pleasant, restricted affect, euthymic, paranoid, suspicious, limited insight, limited judgment. P: Follow care plan, coordinate out-patient providers.
--- NOTE | 2016-12-19 18:27 | NUR ---
[facility] Day Shift Pt affect and behavior unchanged from previous shifts. Pt maintained behavioral control throughout the shift. Pt affect appears blunted, occasionally bright/euthymic when engaged with staff and peers. Pt spends most of the shift engaging in unit activities (coloring, guitar) and reading/resting/writing in his room. Pt is appropriate and pleasant with staff and peers when active on the unit. Pt attended community meeting and participated lightly in group activities throughout the shift. Pt attended all meals and ate approx 100% of all meals.
--- NOTE | 2016-12-20 05:34 | NUR ---
Nursing Zoe Harris, would you like something to help you sleep? "No, I prefer natural stuff like food, medications aren't natural. Pt continues to have difficulty sleeping this shift. Pt reports a couple of hours only around midnight. Declining PRN medications this shift. Continuing to monitor mood behavior sleep times and emtional state with Q15 minute safety checks.
[2016-12-20 12:26] VITALS: BP 127/81; PULSE 112; RESP 16
--- NOTE | 2016-12-20 14:11 | PCM.PNPSY ---
Subjective Date of Service Dec 20, 2016 Subjective I spent 30 minutes both reviewing his treatment plan and providing supportive psychotherapy. Steven participated well during his one to one with me. He acknowledged the need for medications today. He was able to talk about events prior to nursing home. The Staff reports that the intensity of delusional and disorganized thoughts has markedly decreased. He slept 6 hours over the past 24. He denies medication side effects. Denied psychiatric review of systems for psychosis olga or depression Patient was able to identify his medications and what they were used to treat. He did appear to understand the need for medications by the questions he asked during our discussion Mental Status Exam Vital Signs Vital Signs Date Time Temp Pulse Resp B/P Pulse Ox O2 Delivery O2 Flow Rate FiO2 12/20/16 12:26 36.7 112 16 127/81 Appearance: Neat/well groomed Attitude: Pleasant, Cooperative Behavior: No unusual behavior Affect: Well Modulated/Appropriate Mood: Euthymic Thought Process/Associations: Logical/Sequential, Goal Directed Speech Production: Normal Speech Rate: Normal Speech Articulation: Normal Thought Content: Appropriate, Suspicious Danger to Self/Suicidal Ideati: None Danger to Others: None Consciousness: Alert Orientation: Person, Place, Date, Situation Memory: Grossly Intact Estimate Intellectual Function: Average (to ), Above Average Basis for IQ estimate: Awareness current events, Word use/vocabulary, Educational history, Employment history Attention/Concentration & Cogn: Grossly Intact Insight: Good Judgement: Limited Mental Health Plan The patient is a 26-year-old male currently living with his mother and father. He has a history of multiple inpatient admissions for schizophrenia at both [facility] and [facility]. He tends to be medication noncompliant. He reported that he has not been taking any psychiatric medications for the past two years and over the past three months has had increased psychosis (responding to internal stimuli, paranoid, increasing agitation). For three weeks prior to admission, he had poor sleep, auditory hallucinations, homicidal ideation (nonspecific target) and mandaeism preoccupation. On admission, he was agitated and difficult to engage. He appears improved, less suspicious, improved cognitive functioning insight and judgment. He appeared much brighter with no psychotic themes and no longer internally preoccupied. He appears to be responding well to therapy on the unit and Abilify. [place] I 1. Schizophrenia, chronic paranoid type. 2. Posttraumatic stress disorder. 3. Depression, unspecified. 4. Marijuana use disorder [place] II Defer. [place] III None. [place] IV Moderate. [place] V Current GAF equal to 40. Medications Aripiprazole 5 mg daily Treatments 1. The patient is admitted to the inpatient unit and will be provided a safe and secure environment. 2. The patient is denying current active suicidality and is not in need of a one-to-one at this time. 3. The patient is encouraged to participate with group and milieu activities. 4. The patient will be seen by the treatment team on a daily basis to assess symptoms, side effects and response to treatment. 5. Aripiprazole 5 mg daily. 6. Second opinion has been obtained and back up will be olanzapine. 7. May need follow-up family meeting prior to discharge. 8. Discharge pending safety planning and follow-up planning 9. Client is on 14 days involuntary treatment hold will be up on 12/26/2016 Freddie Jacinto MD Dec 20, 2016 14:11
--- NOTE | 2016-12-20 16:51 | NUR ---
NURS DAY [id number] Orientation: x4 Mood: "Last night I was having violent mood swings . . . it feels like there's a puppeteer and I'm a marionette." Endorses anxiety. Denies depression. Affect: Appropriate. Behavior: Steven was in and out of common areas much of shift. Participated in groups. Played music. Thought Process/Content: Logical, linear. Nursing Note/PRN: Steven got 2 hrs of sleep last night. Steven says that marijuana, melatonin, sitting by the heater, and [employer] arts exercises help him sleep when he is at home. Steven is not interested in taking zolpidem, but is willing to try diphenhydramine for sleep.
--- NOTE | 2016-12-20 17:24 | NUR ---
[facility] Day Shift Pt affect and behavior mostly unchanged from previous shifts. Pt maintained behavioral control throughout the shift. Pt affect appears blunted, occasionally bright/euthymic when engaged with staff and peers. Pt spends most of the shift engaging in unit activities (coloring, guitar) and reading/resting/writing in his room. Pt is appropriate and pleasant with staff and peers when active on the unit. Pt attended community meeting and participated in group activities throughout the shift. Pt attended all meals and ate approx 100% of all meals.
--- NOTE | 2016-12-20 17:38 | NUR ---
Pharmacy Technologist/Counselor: S: "How are you today ma'am." O: Patient only slept 2 hours last night as per staff. He denies S/I and H/I. He denies auditory and visual hallucinations. Depression is 0/10 and anxiety is 0/10. A: Patient is cooperative, pleasant, euthymic, suspicious, good insight, limited judgment. P: Follow care plan, coordinate out-patient providers.
[2016-12-20] MEDS ORDERED: diphenhydrAMINE 25 mg Capsule PO PRN (19:40)
--- NOTE | 2016-12-21 05:58 | NUR ---
nursing, nights, 11-7 s- no i don't want that now, thank you. i think i'll be able to go back to sleep. can i have some paper ? i'm waiting for some coffee. o- has appeared to sleep after 2230. up briefly for a drink at 0045. up after 0320 and has alternated between pacing the mejia and writing in the dinning room. appears to be talking to himself and masking his symptoms. assessed q 15 minutes. a- inadequate sleep, possible internal stimuli, generally appropriate and polite, no apparent physical distress. p- monitor behavior/emotional state, quality, times and amount of sleep, use and effect of medication. logan
--- NOTE | 2016-12-21 06:26 | NUR ---
Pt out on unit participating in group, walking halls, and interacting with peers. Slept on and off through night. Pt observed every 15 minutes as ordered.
--- NOTE | 2016-12-21 06:36 | NUR ---
Nursing Note Prep Manager 7pm to 7am Present in common area at start of shift wearing scrubs. Spent majority shift wandering the unit until approx. 2200when he went to bed. He is pleasant, calm and cooperative. Affect constricted, mood neutral, thoughts suspicious and guarded. Speech soft and minimal. Pt denies SI, HI, and A/VH, insight limited, judgement fair. Pt interacting appropriately with select peers, hygiene and appetite good. Pt reported that last night he had difficulty sleeping because he was feeling angry but could not identify the cause. Pt stated he did not want to take Ambien this evening and requested Benadryl for sleep. Order obtained and pt. declined when offered. Monitored pt. with q 15 minutes checks for safety location and accountability
[2016-12-21 09:30] VITALS: BP 138/91; PULSE 102; RESP 16
--- NOTE | 2016-12-21 13:26 | PCM.PNPSY ---
Subjective Date of Service Dec 21, 2016 Subjective I spent 30 minutes both reviewing his treatment plan and providing supportive psychotherapy. Steven participated well during his one to one with me. He acknowledged the need for medications today. He was able to talk about events prior to intermediate. The Staff reports that the intensity of delusional and disorganized thoughts has markedly decreased. He slept 4.5 hours over the past 24. He denies medication side effects. Denied psychiatric review of systems for psychosis olga or depression Patient was able to identify his medications and what they were used to treat. He did appear to understand the need for medications by the questions he asked during our discussion Mental Status Exam Appearance: Neat/well groomed Attitude: Pleasant, Cooperative Behavior: No unusual behavior Affect: Well Modulated/Appropriate Mood: Euthymic Thought Process/Associations: Logical/Sequential, Goal Directed Speech Production: Normal Speech Rate: Normal Speech Articulation: Normal Thought Content: Appropriate, Suspicious Danger to Self/Suicidal Ideati: None Danger to Others: None Consciousness: Alert Orientation: Person, Place, Date, Situation Memory: Grossly Intact Estimate Intellectual Function: Average (to ), Above Average Basis for IQ estimate: Awareness current events, Word use/vocabulary, Educational history, Employment history Attention/Concentration & Cogn: Grossly Intact Insight: Good Judgement: Limited Mental Health Plan The patient is a 26-year-old male currently living with his mother and father. He has a history of multiple inpatient admissions for schizophrenia at both our [facility] and at [facility]. He tends to be medication noncompliant. He reported that he has not been taking any psychiatric medications for the past two years and over the past three months has had increased psychosis (responding to internal stimuli, paranoid, increasing agitation). For three weeks prior to admission, he had poor sleep, auditory hallucinations, homicidal ideation (nonspecific target) and adventist preoccupation. On admission, he was agitated and difficult to engage. He appears improved, less suspicious, improved cognitive functioning insight and judgment. He appeared much brighter with no psychotic themes and no longer internally preoccupied. He appears to be responding well to therapy on the unit and Abilify. He continues to improve would anticipate discharge early next week. Omaha Omaha I 1. Schizophrenia, chronic paranoid type. 2. Posttraumatic stress disorder. 3. Depression, unspecified. 4. Marijuana use disorder Omaha II Defer. Omaha III None. Omaha IV Moderate. Omaha V Current GAF equal to 40. Medications Aripiprazole 5 mg daily Treatments 1. The patient is admitted to the inpatient unit and will be provided a safe and secure environment. 2. The patient is denying current active suicidality and is not in need of a one-to-one at this time. 3. The patient is encouraged to participate with group and milieu activities. 4. The patient will be seen by the treatment team on a daily basis to assess symptoms, side effects and response to treatment. 5. Aripiprazole 5 mg daily. 6. Second opinion has been obtained and back up will be olanzapine. He has required no intramuscular medications 7. May need follow-up family meeting prior to discharge. 8. Discharge pending safety planning and follow-up planning 9. Client is on 14 days involuntary treatment hold will be up on 12/26/2016 and would recommend discharge at that time Freddie Jacinto MD Dec 21, 2016 13:26
--- NOTE | 2016-12-21 14:04 | NUR ---
Nursing Day Shift- S- "The told me that I'm on such a small dose that I don't really need it. He's going to get me out of here next week. He told me that it's not the medicine that is making me better and the dream world. I don't want to be a guinea pig." O- Pt. had declined to take his Abilify this morning. He spoke with the MD about it, and misinterpreted their conversation. The MD clarified his position, and Steven became angry and continued with his logic of "not needing medication, but then agreed to take it at 1400. He showered today and changed his scrub top for the first time in many days. A- Resistant to medications, and the need for medications. Very limited insight into behavior that led to hospitalization. P- Cont. BHTP.
--- NOTE | 2016-12-21 14:19 | NUR ---
Able Bodied Seaman/Counselor: S: "What's the verdict for me today?" O: Patient only slept 4.5 hours last night as per staff. He denies S/I and H/I. He denies auditory and visual hallucinations. Depression is 0/10 and anxiety is 0/10. A: Patient is cooperative, pleasant, euthymic, limited judgment. P: Follow care plan, coordinate out-patient providers.
--- NOTE | 2016-12-21 18:52 | NUR ---
[facility] Day Shift Pt affect and behavior mostly unchanged from previous shifts, though pt appears more restless than noted on previous shifts. Pt maintained behavioral control throughout the shift. Pt affect appears blunted, occasionally bright/euthymic when engaged with staff and peers. Pt spends most of the shift engaging in unit activities (coloring, singing, guitar) and pacing the unit. Pt is appropriate and pleasant with staff and peers when active on the unit. Pt participated lightly in group activities throughout the shift. Pt attended all meals and ate approx 100% of all meals.
--- NOTE | 2016-12-21 20:57 | NUR ---
nursing note 3pm-11pm S)"I played the guitar and sang with others" O)out on unit most of shift, pleasant cooperative on approach, walked halls and social with select peers, dressed in scrubs, did not sleep well last night states feels tired went to room early this evening attended wrap up group A) cooperative, pleasant, polite P) monitor behavior and effectiveness of medications
--- NOTE | 2016-12-22 06:02 | NUR ---
nursing, nights, 11-7 s- no i'm ok. thank you. o- has appeared to sleep 2115-midnight, 0030- 0200, [id number], otherwise has alternated between pacing the mejia and writing in his room. assessed q 15 minutes. a- inadequate/interrupted sleep. appears less internally preoccupied then yesterday. no apparent distress. p- monitor behavior/emotional state, quality, times and amount of sleep, use and effect of medication. logan
[2016-12-22 10:58] VITALS: BP 123/75; PULSE 67; RESP 16
--- NOTE | 2016-12-22 13:36 | PCM.PNPSY ---
Subjective Date of Service Dec 22, 2016 Subjective I spent 30 minutes both reviewing his treatment plan and providing supportive psychotherapy. Steven participated well during his one to one with me. He acknowledged the need for medications today. He was able to talk about events prior to [facility]. The Staff reports that the intensity of delusional and disorganized thoughts has markedly decreased. He slept 7.5 hours over the past 24. He denies medication side effects. Denied psychiatric review of systems for psychosis olga or depression Patient was able to identify his medications and what they were used to treat. He did appear to understand the need for medications by the questions he asked during our discussion Mental Status Exam Vital Signs Vital Signs Date Time Temp Pulse Resp B/P Pulse Ox O2 Delivery O2 Flow Rate FiO2 12/22/16 10:58 36.5 67 16 123/75 Appearance: Neat/well groomed Attitude: Pleasant, Cooperative Behavior: No unusual behavior Affect: Well Modulated/Appropriate Mood: Euthymic Thought Process/Associations: Logical/Sequential, Goal Directed Speech Production: Normal Speech Rate: Normal Speech Articulation: Normal Thought Content: Appropriate, Suspicious Danger to Self/Suicidal Ideati: None Danger to Others: None Consciousness: Alert Orientation: Person, Place, Date, Situation Memory: Grossly Intact Estimate Intellectual Function: Average (to ), Above Average Basis for IQ estimate: Awareness current events, Word use/vocabulary, Educational history, Employment history Attention/Concentration & Cogn: Grossly Intact Insight: Good Judgement: Good Mental Health Plan The patient is a 26-year-old male currently living with his mother and father. He has a history of multiple inpatient admissions for schizophrenia at both our [facility] and at [facility]. He tends to be medication noncompliant. He reported that he has not been taking any psychiatric medications for the past two years and over the past three months has had increased psychosis (responding to internal stimuli, paranoid, increasing agitation). For three weeks prior to admission, he had poor sleep, auditory hallucinations, homicidal ideation (nonspecific target) and uatsdin preoccupation. On admission, he was agitated and difficult to engage. He appears improved, less suspicious, improved cognitive functioning insight and judgment. He appeared much brighter with no psychotic themes and no longer internally preoccupied. He appears to be responding well to therapy on the unit and Abilify. He continues to improve would anticipate discharge early next week. Easton Easton I 1. Schizophrenia, chronic paranoid type. 2. Posttraumatic stress disorder. 3. Depression, unspecified. 4. Marijuana use disorder Easton II Defer. Easton III None. Easton IV Moderate. Easton V Current GAF equal to 45. Medications Aripiprazole 5 mg daily Treatments 1. The patient is admitted to the inpatient unit and will be provided a safe and secure environment. 2. The patient is denying current active suicidality and is not in need of a one-to-one at this time. 3. The patient is encouraged to participate with group and milieu activities. 4. The patient will be seen by the treatment team on a daily basis to assess symptoms, side effects and response to treatment. 5. Aripiprazole 5 mg daily. 6. Second opinion has been obtained and back up will be olanzapine. He has required no intramuscular medications 7. May need follow-up family meeting prior to discharge. 8. Discharge pending safety planning and follow-up planning 9. Client is on 14 days involuntary treatment hold will be up on 12/26/2016 and would recommend discharge at that time Freddie Jacinto MD Dec 22, 2016 13:36
--- NOTE | 2016-12-22 15:24 | NUR ---
day shift nursing note-Psychosis/Sleep/Appetite/SI S/O-"May I have my medication?" Pt. was pacing up and down the mejia. He asked telegraphic typewriter mechanic what it was for and telegraphic typewriter mechanic responded "clearer thinking." "I do not ever want to take respirdal again...it made me have more racing thoughts." He has had behavioral control throughout the shift. He has been going to groups and has a good appetite. He stated he enjoys singing and playing the guitar. He denies SI or HI. He rated his mood was good and rated it at 9/10. He relates well with staff and peers. A-Psychosis. P-Monitor for safety per protocol. Assess efficacy of meds to decrease psychosis and enhance sleep. Encourage verbalization of feelings.
--- NOTE | 2016-12-22 16:52 | NUR ---
Naturopathic Doctor./ c.m. S.:"I'm tired... My mood is fine." O.: met with pt. in a private room to discuss his progress. Pt. didn't sleep well last night. He had broken sleep of total "6 hours - I just couldn't sleep, felt restless..." He denied SI/HI, denied AH/VH (he was checking corners of the room), denied paranoid/delusional thoughts. He denied depression but he said that he felt "alfonzo of sluggish today". He took a long nap after lunch. He denied anxiety. He had "good, short visits" with his mother over the last few days. He was in and out of his room all morning playing guitar and walking in a mejia. A.: pt. is cooperative, pleasant, looks internally preoccupied at times and guarded. P.: monitor behavior, monitor for safety; monitor meds intake; follow care plan.
--- NOTE | 2016-12-22 20:15 | NUR ---
MHA Note 12/22/16 D- Patient ate all of his meals and snacks. He attended ADLs this shift and appears groomed. Patient attended all structured groups and activities with various levels of participation. A-Patient started the shift bright and engaged with both peers and staff. He ate breakfast in the dining area and played some piano before coming to community meeting. During the group he appeared restless, gesturing and doing roby chi. He left half-way through the group to play guitar down the mejia. Patient attended other groups, such as one about CBT/DBT but was unable to stay for the entire group, coming in and out of group multiple times before leaving entirely about half-way through. Patient has been either pacing/jogging the hallway or playing guitar. He was playing loudly for a peer and their family member. Other patients in the hallway and other rooms visiting with family reported feeling over stimulated and the patient needed to be redirected. He appeared irritable at this time, but after dinner brightened a bit. He was engaged and social with peers both walking and kicking a ball in the mejia as well as playing outside on the patio. He appeared logical and linear but was moderately pressured in speech. P- Continue current treatment plan.
--- NOTE | 2016-12-22 20:49 | NUR ---
nursing note evenings S)"I try to get exercise everyday it helps me feel much better" O)pt walked mejia, smiled and was pleasant, social on unit with other peers, reports mood 06/16, highlight for today was laughing with peers, mother came to visit, dressed in scrubs and groomed states slept a total of 7 hours after going back to sleep in early AM A)improving, social, pleasant, cooperative P) monitor medication effectiveness and encourage participation in treatment
--- NOTE | 2016-12-23 05:40 | NUR ---
nursing, nights, 11-7 s- i'm ok. i'm feeling better. o- has appeared to sleep after [id number], [id number], [id number] and after 0530. alternates between pacing in the mejia and resting in bed. will jog and do roby chi at times. assessed q 15 minutes. a- interrupted sleep, appears internally preoccupied at times, polite and pleasant, no apparent distress. p- monitor behavior/emotional state, quality, times and amount of sleep, use and effect of medication. logan
[2016-12-23 09:00] VITALS: BP 164/70; PULSE 64; RESP 17
--- NOTE | 2016-12-23 13:04 | PCM.PNPSY ---
Subjective Date of Service Dec 23, 2016 Subjective I spent 30 minutes both reviewing his treatment plan and providing supportive psychotherapy. Steven participated well during his one to one with me. He acknowledged the need for medications today. He is beginning to future plan how to take care of his psychiatric needs and to pursue a career. The Staff reports that the delusional and disorganized thoughts he had on admission have resolved. He slept 5.5 hours. He denies medication side effects. Denied psychiatric review of systems for psychosis olga or depression Patient was able to identify his medications and what they were used to treat. Mental Status Exam Appearance: Neat/well groomed Attitude: Pleasant, Cooperative Behavior: No unusual behavior Affect: Well Modulated/Appropriate Mood: Euthymic Thought Process/Associations: Logical/Sequential, Goal Directed Speech Production: Normal Speech Rate: Normal Speech Articulation: Normal Thought Content: Appropriate, Suspicious Danger to Self/Suicidal Ideati: None Danger to Others: None Consciousness: Alert Orientation: Person, Place, Date, Situation Memory: Grossly Intact Estimate Intellectual Function: Average (to ), Above Average Basis for IQ estimate: Awareness current events, Word use/vocabulary, Educational history, Employment history Attention/Concentration & Cogn: Grossly Intact Insight: Good Judgement: Good Mental Health Plan The patient is a 26-year-old male currently living with his mother and father. He has a history of multiple inpatient admissions for schizophrenia at both our [facility] and at [facility]. He tends to be medication noncompliant. He reported that he has not been taking any psychiatric medications for the past two years and over the past three months has had increased psychosis (responding to internal stimuli, paranoid, increasing agitation). For three weeks prior to admission, he had poor sleep, auditory hallucinations, homicidal ideation (nonspecific target) and adventism preoccupation. On admission, he was agitated and difficult to engage. He appears improved, less suspicious, improved cognitive functioning insight and judgment. He appeared much brighter with no psychotic themes and no longer internally preoccupied. He appears to be responding well to therapy on the unit and Abilify. He continues to improve would anticipate discharge early next week. Braham Braham I 1. Schizophrenia, chronic paranoid type. 2. Posttraumatic stress disorder. 3. Depression, unspecified. 4. Marijuana use disorder Braham II Defer. Braham III None. Braham IV Moderate. Braham V Current GAF equal to 45. Medications Aripiprazole 5 mg daily Treatments 1. The patient is admitted to the inpatient unit and will be provided a safe and secure environment. 2. The patient is denying current active suicidality and is not in need of a one-to-one at this time. 3. The patient is encouraged to participate with group and milieu activities. 4. The patient will be seen by the treatment team on a daily basis to assess symptoms, side effects and response to treatment. 5. Aripiprazole 5 mg daily. 6. Second opinion has been obtained and back up will be olanzapine. He has required no intramuscular medications 7. May need follow-up family meeting prior to discharge. 8. Discharge pending safety planning and follow-up planning 9. Client is on 14 days involuntary treatment hold will be up on 12/26/2016 and would recommend discharge at that time with outpatient follow-up. Freddie Jacinto MD Dec 23, 2016 13:04
--- NOTE | 2016-12-23 16:12 | NUR ---
Nursing Notes [id number] S: Feeling better today O: Pt pacing halls back and forth many times today. Pt played some football outside, pt sprinted back and forth outside to burn energy, pt played his guitar and listened to music with other patients. Pt is polite, calm and cooperative. Pt. has participated with group and interacting with staff and other patients. A: Pt appears well kept today P: Monitor for safety and response to treatment. Follow plan of care for safety/response to treatment.
--- NOTE | 2016-12-23 17:19 | NUR ---
Filament Cutter./ c.m. S.:"I'm ok." O.: pt. had broken sleep last night. He denied SI/HI, denied AH/VH or paranoid/delusional thoughts. He was out of his room most of the time walking, jogging in a mejia, playing guitar in a group room for other peers. Section Maintainer left a message for [facility] with a request for help with [facility] enrollment. Pt. doesn't have insurance at this time. He doesn't have money to pay for his meds and follow up. A.: pt. is cooperative, pleasant, social with peers. He has an intense stare and looks restless at times. P.: monitor behavior, work on follow up, confirm housing options; follow care plan.
--- NOTE | 2016-12-23 18:27 | NUR ---
Observations [id number] Pt was awake in dining area upon start of shift. Pt was very busy today, attending groups, walking halls, and doing lots of exercising. Pt also played the guitar and visited with peers. Pt attended all meals, eating 100%. Pt visited with parents in the afternoon. He was observed every 15 minutes of shift as directed.
--- NOTE | 2016-12-23 21:12 | NUR ---
nurses note evening S)" I just need to let the medications work they take a little time" O)parents visited and patient said it went well, talked to son, nephew and niece, attended community wrap up and enjoyed snack, rated mood 7/10, sat out side of female room in door way, asked to move and talk in community area, not resistant and moved A)cooperative, polite, social P) monitor effectiveness of medications monitor behavior
--- NOTE | 2016-12-24 05:13 | NUR ---
Nursing notes: artificial breeding technician/sleep Patient asleep early shift, awake frequently during the night walking in hallway, then resting in bed for intervals. Patient continues with fragmented sleep.
[2016-12-24 11:21] VITALS: BP 110/72; PULSE 75; RESP 16
--- NOTE | 2016-12-24 11:50 | NUR ---
DAYS 7- S/O- Patient has been appropriate with staff and other patients, has played guitar in music room, and walking halls for exercise, Patient states "If I keep walking I can do at least 5 miles today" A- Slept 4.5 hours last night, goal to make new music and art. Mood 04/15 increase positive out look due to making friends with other patients. P-Possible d/c tomorrow, family involved? Addendum: 12/24/16 at 1208 by CLARA HAWKINS RN Amended: Links added.
--- NOTE | 2016-12-24 14:55 | PCM.PNPSY ---
Subjective Date of Service Dec 24, 2016 Subjective The patient reports that, "my brain is functioning better. My memory was malfunctioning." The patient further reports that he is "thankful that he started the medication." Patient discussed feeling less distracted by his thoughts and his episodes of "lucid dreaming." He reports that he no longer feels paranoid and is thinking more clearly. He states, "my emotion regulator is working better." The patient reports increased sexual interest (which had been lacking for some time) and "flushes of happiness." The patient reports that his parents are supportive and will allow him to return home. He reports that he plans to stay on the medication and not consider a reduction or stopping without working with his provider We discussed that he currently is on a very low dose. He denied side effects. No cogwheeling or dystonia on physical examination. Sleep: 5 + hours. Appetite: "pretty steady" Suicidal and homicidal ideation: Denies Auditory hallucinations: Denies Visual hallucinations: Denies Other Psychotic Symptoms: N/A Anxiety: Denies, at times slight social anxiety Depression: Denies "except sad that I can't see my son." Mental Status Exam Vital Signs Vital Signs Date Time Temp Pulse Resp B/P Pulse Ox O2 Delivery O2 Flow Rate FiO2 12/24/16 11:21 36.4 75 16 110/72 Appearance: Neat/well groomed Attitude: Pleasant, Cooperative Behavior: No unusual behavior Affect: Well Modulated/Appropriate Mood: Euthymic Thought Process/Associations: Logical/Sequential, Goal Directed Speech Production: Normal Speech Rate: Normal Speech Articulation: Normal Thought Content: Appropriate, Suspicious Danger to Self/Suicidal Ideati: None Danger to Others: None Delusions: Paranoid (Denies) Hallucinations: Auditory (Denies), Visual (Denies) Consciousness: Alert Orientation: Person, Place, Date, Situation Memory: Grossly Intact Estimate Intellectual Function: Average (to ), Above Average Basis for IQ estimate: Awareness current events, Word use/vocabulary, Educational history, Employment history Attention/Concentration & Cogn: Grossly Intact Insight: Good Judgement: Good Mental Health Plan The patient is a 26-year-old male currently living with his mother and father. He has a history of multiple inpatient admissions for schizophrenia at both [facility] and at [facility]. He tends to be medication noncompliant. On admission, he stated that he had not been taking any psychiatric medications for the past two years and over the past three months had had increased psychosis (responding to internal stimuli, paranoid, increasing agitation). For the past three weeks prior to admission, he had poor sleep, and then developed auditory hallucinations, homicidal ideation ( nonspecific target) and taoist preoccupation. On admission, he was agitated and difficult to engage. In the past he had responded to Zyprexa, although he had only taken one dose since admission here. He appears improved, but remained suspicious, with cognitive impairment and poor insight and judgment. He was detained on a 72-hour involuntary treatment and subsequently detained on a 14 day order. He was provided detailed information regarding the potential risks and benefits to aripiprazole but required a medication override due to medication refusal without clear reason for the refusal. Once receiving second opinion, he did agree to take aripiprazole and is reporting so far a positive experience with this medication. The patient has reported improvement of positive and negative symptoms and no adverse side effects except return of sex drive and more energy ( though not unmanageable). [place] I 1. Schizophrenia, chronic paranoid type. 2. Marijuana use disorder [place] II Defer. [place] III None. [place] IV Moderate. [place] V Current GAF equal to 45. Medications Aripiprazole 5 mg daily Treatments 1. The patient is admitted to the inpatient unit and will be provided a safe and secure environment. 2. The patient is denying current active suicidality and is not in need of a one-to-one at this time. 3. The patient is encouraged to participate with group and milieu activities. 4. The patient will be seen by the treatment team on a daily basis to assess symptoms, side effects and response to treatment. 5. Aripiprazole 5 mg daily. 6. Second opinion has been obtained and back up will be olanzapine. He has been medication adherent and noted no side effects. 7. Discharge pending safety planning and follow-up planning. May need follow- up family meeting prior to discharge. 8. Client is on 14 days involuntary treatment hold will be up on 12/26/2016 without petition for further involuntary hospitalization. Nolan Crocker MD Dec 24, 2016 14:55 Nolan Crocker MD Dec 24, 2016 14:55
--- NOTE | 2016-12-24 17:24 | NUR ---
Tv Technician./c.m. S.:"My brain is working properly. I'm so thankful for this medication because I feel very good and it gives me hope. I think I feel comfortable taking it for some time. " O.: met with pt., and med. student together to discuss pt.'s discharge plan. Pt. had broken sleep last night but he didn't feel tired. He "still have a lot of energy" and he is walking a lot and exercising also. He said that his memory was "better". He denied SI/HI, denied AH/VH, denied paranoid/delusional thoughts. He denied depression - "my emotional regulator is working better." He denied anxiety at this time. He noticed an increase in his appetite so he was planing to do physical activities every day. He met with [employer] sales representative [employer] and he applied for [facility] insurance. He had "a good visit" with his parents yesterday. He was positive that he would be able to go home tomorrow. He said that one of his parent would come to pick him up. He completed Safety plan. A.: pt. is cooperative, pleasant, very social with peers, has a bright affect. P.: monitor behavior, confirm follow up; follow care plan.
--- NOTE | 2016-12-24 18:30 | NUR ---
Observations [id number] Pt was awake in dining area upon start of shift. Pt was very social with both peers and staff today. Pt participated in groups, showered, and attended all meals, eating 100%. Pt completed a collage in which the focus was rock climbing and outdoor activity. Pt spoke about his son and how he is a single father and the hardship that comes with that. He continues to exercise around the unit and pace. He was observed every 15 minutes of shift as directed.
--- NOTE | 2016-12-24 22:17 | NUR ---
Nursing Note Jennifer Shift Pt in milieu socializing with staff and peers. Pt affect appears bright and pt denied anxiety, depression, SI or hallucinations. Pt stated" I am having bursts of energy so thats why I am walking up an down the halls but the doctor said meds will be working better in a few weeks". Pt stated he felt ready for d/c in am and stated he would continue taking his meds when he leaves. Pt cooperative and polite . Speech clear and organized. Q15 min safety checks per protocol, [facility] sleep, safety, behavior
--- NOTE | 2016-12-25 02:25 | NUR ---
Observations 1900 to 0700 Pt's Mother visited again last night. Pt did attend wrap up group. Pt walked the halls for most of the night. Pt is excited about his discharge today. Pt has not yet fallen asleep. Pt was observed every 15 minutes through the night as directed.
--- NOTE | 2016-12-25 05:39 | NUR ---
Nursing note; fast food shift lead/sleep Patient wakes frequently during the night and walks in the hallway. Patient denies complaints, and reports he is looking foward to upcoming discharge. Patient with fragmented sleep and only slept approx 3 hours.
--- NOTE | 2016-12-25 10:11 | PCM.DIMED ---
Discharge Instructions Date of Service Dec 25, 2016 Dates of Hospitalization Dec 08, 2016 at 20:09 Discharge Diagnosis Discharge Diagnosis [place] I 1. Schizophrenia, chronic paranoid type. 2. Marijuana use disorder [place] II Defer. [place] III None. [place] IV Moderate. [place] V Current GAF equal to 50. Diet No restrictions Activity No restrictions Patient Instructions Should you have any thoughts of harming yourself or others, please call the crisis line, your provider, 911, or go to the nearest Emergency Department. Do not change or discontinue your medications without discussing with your provider. You have been given a prescription for 30 days supply of Abilify(aripiprazole) and 10 doses of Ambien (zolpidem) your medication Follow-up plan Primary Care Dr. Jay Wakefield, DO on 01/14/17, [facility] 8[facility] [address] [place] [address] Nolan Crocker MD Dec 25, 2016 10:11
[2016-12-25] MEDS ORDERED: ZLP5T PO (10:13)
[2016-12-25] MEDS ORDERED: ARIP5TAB5 PO (10:13)
[2016-12-25 10:45] VITALS: BP 130/60; PULSE 86; RESP 17
--- NOTE | 2016-12-25 12:28 | NUR ---
Greeting Card Editor./ c.m. S.:"I'm in a cheeper mood today! I have a good energy and a good elevated mood. My mind is clear and it's easy to focus." O.: met with pt. and MD together to confirm his discharge home today. Pt. believed that he slept "well" last night. He felt "good and rested." He was impressed with medications and his mood condition. He denied SI/HI, denied AH/VH, denied paranoid/delusional thoughts, denied depression or anxiety. He completed Safety plan. He said that his mother would come to pick him around noon. He has follow up appt. for meds on January 14, 2017 at 8:10 am with his PCP, Sanket German DO at [facility] ([phone]). A.: pt. is cooperative, pleasant, has a bright affect, very social with peers. P.: monitor behavior, follow care plan.
--- NOTE | 2016-12-25 13:17 | NUR ---
Nursing Note Discharge Pt discharged at 1210 to home with father. Pt's scripts were faxed to [facility] in [place]. Pt pleasant & cooperative with discharge. He signed all paperwork (he has a copy) & expressed understanding of appointment scheduled. Pt denies suicidal/homicidal ideation or hallucinations. Pt left with all his belongings.
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
== END 2016-12-25 12:10 | disposition home or self-care (01) | DRG 885 ==
LOC: SED 13:17 → MHC 20:09
PROVIDERS: ADMIT Psychiatry & Neurology Psychiatry; ATTEND Psychiatry & Neurology Psychiatry
DX: F20.0 Paranoid schizophrenia (principal); Z91.14 Patient's other noncompliance with medication regimen; F12.90 Cannabis use, unspecified, uncomplicated; F43.10 Post-traumatic stress disorder, unspecified

== ENCOUNTER 2017-01-18 12:32 | Emergency (ER) | payer MEDICAID, OTHER ==
[~2017-01-18] VITALS: Ht 175.3 cm; Wt 68.2 kg
[~2017-01-18 12:32] MED LIST changes: +ARIP5TAB5 PO; -OLAN5TAB25 PO; +ZLP5T PO
[2017-01-18 12:35] VITALS: BP 118/77; PULSE 81; RESP 14; O2SAT 99
--- NOTE | 2017-01-18 13:37 | ED.REPORT ---
HPI-Psychiatric Illness Date of Service Jan 18, 2017 ED Provider: Daren Yin DO The patient is a 26 year old male with history of PTSD, schizophrenia, and previous psychiatric hospitalizations, who presents to the emergency department requesting a mental health evaluation. The patient recently stopped taking his psychiatric medication. The patient was originally on risperidone then Zyprexa, then he was switched back to risperidone and then most recently was placed Abilify. His last dose of Abilify was 2 days ago. He believes this medication was giving him seizures. He has experienced intermittent command hallucinations , the last episode was this morning. He denies suicidal or homicidal ideation. He would like to be started back on Zyprexa. Nursing Notes Stated Complaint: EVAL Chief Complaint: Psychiatric Complaint Nursing Notes Reviewed: Yes Allergies: Coded Allergies: Sulfa (Sulfonamide Antibiotics) (Verified Allergy, Unknown, 12/08/16) Scheduled Aripiprazole (Abilify) 5 Mg Tablet 5 MG PO DAILY Olanzapine (Zyprexa) 15 Mg Tablet 15 MG PO DAILY Scheduled PRN Zolpidem (Ambien) 5 Mg Tablet 5 MG PO HS PRN PRN Insomnia General Time Seen by MD: 13:35 Chief Complaint Other (medication reaction) Hx Obtained From: Patient Arrived By: Walk-in Onset Occurred: More than a week ago... Symptom Duration: Intermittent Progression Since Onset: Intermittent Severity: Current: No pain currently Severity: Maximum: No pain Recent Healthcare: No recent hospitalization, Recent doctor visit Similar Sx Previous: Yes Risk-Psychiatric Illness Suicide Risk Stratification Suicide Risk Factors - Adult: : Prior psych admission: Substance abuseNo: Alcohol use RF Statements: Risk factors reviewed Past Medical History Past Medical History Per patient: PTSD. Schizophrenia Previous hospitalization for mental illness at [facility] and [facility]. Past Surgical History Negative. Family History Noncontributory Smoking History Former Smoker Social History Alcohol Use: Denies alcohol use Drug Use: Meth, THC Other Social History: Lives with parents, Local resident Ambulatory Status Independent Review of Systems Neurologic: Reports: Seizure Psychiatric: Reports: Hallucinations, auditory, Denies: Homicidal ideation, Suicidal ideation Complete sys rev & neg: except as marked. Physical Exam Initial Vital Signs Vital Signs (First) Date Time Temp Pulse Resp B/P Pulse Ox O2 Delivery O2 Flow Rate FiO2 01/18/17 12:35 36.8 81 14 118/77 99 Room Air Initial VS: Reviewed Head / Eyes: Atraumatic, Normocephalic, PERRL ENT: Mucous membranes moist, Conjunctiva normal, No scleral icterus Neck: Supple, Non-tender, Full range of motion Respiratory: Breath sounds normal, Clear to auscultation, No respiratory distress Cardiovascular: Regular rate & rhythm, Heart sounds normal, Intact distal pulses Abdomen / GI: Soft, Non-tender, No guarding, No rebound, No distention Extremities: Vascular intact, Neuro intact, No swelling, No tenderness Skin: Warm, Dry, No cyanosis General/Constitutional: Awake, Alert Neurologic: Oriented X3, Speech NL, No motor deficits, No sensory deficits, Memory NL, Gait NL Psychiatric: Not suicidal, Not homicidal Abnormal Mood/Affect: Positive: Pressured speech Re-Eval/Medical Decision Med Decision/Clinical Course This patient does not seem to be in imminent risk of harm to himself or others, he lives with his parents, he is seen by social work as well. It is felt like he meets discharge criteria. There was a brief medication consult with psychiatry who recommended 15 mg of Zyprexa, which the patient also requested. After discussion with social staff worker family seems reliable to take care of the patient in have him return for worsening symptoms. Return and follow-up precautions Source of Hx: Old records Re-Evaluation/Progress : Time of Eval: 15:49 Re-Evaluation/Progress Note: Rechecked the patient. Discussed plan for discharge. All questions were addressed. Consultation #1: Consulted With: shoe worker Call Returned at: 14:00 Property Worker: Will see patient Consultation #2: Referral / Consult Name: Freddie Jacinto MD Consulted With: Psychiatry Call Returned at: 15:33 Note: If his family agrees to take him home and will call 911 if he gets out of control. He agrees with plan to start the patient on 15 mg Zyprexa daily. Counseled Regarding: Diagnosis, Need for follow-up, When/why to return to ED Discharge & Departure Impression: Primary Impression: Medication adverse effect Encounter type: initial encounter Qualified Code: T88.7XXA - Unspecified adverse effect of drug or medicament, initial encounter Additional Impression: History of schizophrenia )( Condition at Discharge: No danger to self, No danger to others, No suicidal ideation, No homicidal ideation Disposition: Home Discharge Condition All VS Reviewed: Yes Condition: Stable Additional Instructions: Thank you for entrusting us with your care today. I spoke with Dr. Jacinto who recommended starting you on 15 mg Zyprexa. You can discontinue the Abilify immediately. Followup at the residency clinic next week for re-evaluation. Please return to the emergency department immediately if your symptoms worsen, if you feel suicidal or homicidal, or for any other new or concerning symptoms. Referrals: Jay Wakefield DO (PCP) Scribe Attestation Portions of this note were transcribed by Cathie Lozano. I, Dr. Yin personally performed the history, physical exam and medical decision-making; I reviewed and confirmed the accuracy of the information in the transcribed note. Signed by: Jerardo Epstein, 01/18/2017 at 1600. copies to: Jay Wakefield DO O'Kelley, Timothy S DO Jan 18, 2017 13:37 Cathie Lozano Jan 18, 2017 13:40
[2017-01-18] MEDS ORDERED: OLAN15TA3 PO (15:53)
[2017-01-18 16:20] VITALS: BP 116/70; PULSE 71; RESP 16
== END 2017-01-18 16:22 | disposition home or self-care (01) ==
LOC: SED 12:32
DX: F20.9 Schizophrenia, unspecified (principal); T43.505A Adverse effect of unspecified antipsychotics and neuroleptics, initial encounter; Y93.89 Activity, other specified; Y92.89 Other specified places as the place of occurrence of the external cause; Y99.8 Other external cause status; Z87.891 Personal history of nicotine dependence; Z88.2 Allergy status to sulfonamides